=== PATIENT | female | born 1985 | race Caucasian/White ===

== ENCOUNTER 2023-03-05 13:10 | Outpatient (OUT) | payer OTHER, SELFPAY ==
[2023-03-05 13:44] LABS: Alanine Aminotransferase 15 U/L (14-59); Albumin Globulin Ratio 1.2; Albumin Level 4.1 g/dL (3.4-5.0); Alkaline Phosphatase 78 U/L (46-116); Anion Gap 15.8; Aspartate Amino Transferase 12 U/L (15-37); BUN Creatinine Ratio 25.4; Bilirubin Total 0.2 mg/dL (0.2-1.0); Calcium 8.7 mg/dL (8.5-10.1); Carbon Dioxide 20.8 mmol/L (21.0-32.0); Chloride 110 mmol/L (98-107); Estimated GFR (African America >60 (>=60); Estimated GFR (Non-African Ame >60 (>=60); Globulin 3.4 g/dL; Glucose 80 mg/dL (74-106); Potassium 3.6 mmol/L (3.5-5.1); Sodium 143 mmol/L (136-145); Total Protein 7.5 g/dL (6.4-8.2); Uric Acid 3.7 mg/dL (2.6-6.0)
[2023-03-05 14:11] LABS: Basophils Absolute Auto 0.1 10^3/uL (0.0-0.1); Basophils Percent Auto 0.9 % (0.2-2.0); Eosinophils Absolute Auto 0.3 10^3/uL (0.0-0.7); Eosinophils Percent Auto 3.5 % (0.9-7.0); Hemoglobin 10.7 g/dL (12.0-16.0); Immature Granulocytes Abs Auto 0.02 10^3/uL (0.00-0.03); Immature Granulocytes Pct Auto 0.2 % (0.0-0.5); Mean Corpuscular HGB Conc 30.6 g/dL (29.9-35.2); Mean Corpuscular Hemoglobin 29.2 pg (26.7-34.0); Mean Corpuscular Volume 95.6 fL (81.0-99.0); Mean Platelet Volume 9.4 fL (9.5-13.5); Monocytes Absolute Auto 0.5 10^3/uL (0.3-0.8); Monocytes Percent Auto 6.3 % (1.7-12.0); Neutrophils Absolute Auto 5.2 10^3/uL (1.4-6.5); Neutrophils Percent Auto 64.1 % (43.0-75.0); Platelet Count 423 10^3/uL (150-450); Red Blood Count 3.66 10^6/uL (4.20-5.40); Red Cell Distribution Width 16.3 % (11.0-15.0); White Blood Count 8.1 10^3/uL (4.0-11.0)
[2023-03-05 14:22] LABS: Erythrocyte Sedimentation Rate 17 mm/hr (<=20)
[2023-03-06 04:09] LABS: Rheumatoid Factor (RF) 15.4 IU/mL (<14.0)
[2023-03-08 14:08] LABS: ANA Direct Negative (Negative)
[2023-03-11 08:44] LABS: C Reactive Protein <0.50 mg/dL (<=0.50)
== END 2023-03-05 13:11 | disposition home or self-care (01) ==
LOC: LAB 13:11
PROVIDERS: PCP Family Medicine; Visit Provider Family Medicine
DX: M25.40 Effusion, unspecified joint (principal)
CPT/HCPCS: 36415; 80053; 84550; 85025; 85652; 86038; 86140; 86430; 86431

== ENCOUNTER 2023-09-13 13:42 | Emergency (ER) | payer OTHER, SELFPAY ==
[2023-09-13] VITALS (27 sets, daily range): BP systolic 113–154; BP diastolic 58–90; PULSE 58–100; TEMP 36.6; O2SAT 100; BMI 22.8
--- NOTE | 2023-09-13 14:24 | ECG_ITS ---
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
--- NOTE | 2023-09-13 14:27 | PC.NURSE ---
bruising noted across lower abd, bruise to left thigh and bruise to left breast
--- NOTE | 2023-09-13 14:31 | CT_ITS ---
The [address] [address] Patient Name: VLADIMIR PINA MRN: [id number] date: 1985 Sex: F Assigned Patient Location: ER Current Patient Location: ED.MAIN Accession/Order Number: [id number] Exam Date: 09/13/2023 14:59 Report Date: 09/13/2023 15:31 At the request of: POLI FLOOD Procedure: CT head/brain wo con CT head/brain wo con, CT cervical spine wo con, 09/13/2023 2:59 PM EDT INDICATION: trauam COMPARISON: There is no appropriate prior study for comparison. TECHNIQUE: Axial images of 3 mm are obtained from the base of the skull to vertex completed with Axial images of 2 mm are obtained from base of skull to T2 without contrast. Dose reduction techniques were achieved by using automated exposure control and/or adjustment of mA and/or kV according to patient size and/or use of iterative reconstruction technique. FINDINGS: The cerebral and cerebellar sulci as well as ventricular system are appropriate for age. There is no intracranial mass, mass effect, midline shift, intra or extra-axial fluid collection. No acute territorial infarction or hemorrhage is noted. Possible enlarged perivascular space in the right external capsule. The visualized portions of orbits, mastoid air cells as well as paranasal sinuses are unremarkable. There is no suspicious osteolytic or osteoblastic lesion. No acute fracture or dislocation is noted. Multilevel degenerative changes of cervical spine are noted. CT/CT head/brain wo con IMPRESSION: No acute intracranial process is identified. No acute fracture. Electronically authenticated by: SEYMOUR CABA Date: 09/13/2023 15:31
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
--- NOTE | 2023-09-13 14:35 | CT_ITS ---
The [address] [address] Patient Name: VLADIMIR PINA MRN: [id number] date: 1985 Sex: F Assigned Patient Location: ER Current Patient Location: ED.MAIN Accession/Order Number: [id number] Exam Date: 09/13/2023 14:59 Report Date: 09/13/2023 15:31 At the request of: POLI FLOOD Procedure: CT cervical spine wo con CT head/brain wo con, CT cervical spine wo con, 09/13/2023 2:59 PM EDT INDICATION: trauam COMPARISON: There is no appropriate prior study for comparison. TECHNIQUE: Axial images of 3 mm are obtained from the base of the skull to vertex completed with Axial images of 2 mm are obtained from base of skull to T2 without contrast. Dose reduction techniques were achieved by using automated exposure control and/or adjustment of mA and/or kV according to patient size and/or use of iterative reconstruction technique. FINDINGS: The cerebral and cerebellar sulci as well as ventricular system are appropriate for age. There is no intracranial mass, mass effect, midline shift, intra or extra-axial fluid collection. No acute territorial infarction or hemorrhage is noted. Possible enlarged perivascular space in the right external capsule. The visualized portions of orbits, mastoid air cells as well as paranasal sinuses are unremarkable. There is no suspicious osteolytic or osteoblastic lesion. No acute fracture or dislocation is noted. Multilevel degenerative changes of cervical spine are noted. CT/CT cervical spine wo con IMPRESSION: No acute intracranial process is identified. No acute fracture. Electronically authenticated by: SEYMOUR CABA Date: 09/13/2023 15:31
[2023-09-13] MEDS: MORPHINE SULFATE 4 MG/ML VIAL IV (14:53)
[2023-09-13] MEDS: ONDANSETRON PF 4 MG/2 ML VIAL IV (14:53)
[2023-09-13] MEDS: 0.9 % SODIUM CHLORIDE 1,000 ML 1000 ML IV (14:54)
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
[2023-09-13] MEDS: DIAZEPAM 10 MG/2 ML SYRINGE 2 MG IV (15:24)
[2023-09-13] MEDS: PROCHLORPERAZINE 10 MG/2 ML VIAL 5 MG IV (15:24)
[2023-09-13] MEDS: KETOROLAC TROMETHAMINE 30 MG/ML VIAL 15 MG IVP (15:42)
[2023-09-13 15:51] LABS: Basophils Percent Auto 0.1 % (0.2-2.0); Hematocrit 39.3 % (36.0-48.0); Hemoglobin 12.1 g/dL (12.0-16.0); Immature Granulocytes Abs Auto 0.06 10^3/uL (0.00-0.03); Immature Granulocytes Pct Auto 0.4 % (0.0-0.5); Lymphocytes Absolute Auto 0.8 10^3/uL (1.2-3.8); Lymphocytes Percent Auto 5.9 % (20.5-60.0); Mean Corpuscular HGB Conc 30.8 g/dL (29.9-35.2); Mean Corpuscular Volume 94.2 fL (81.0-99.0); Mean Platelet Volume 9.9 fL (9.5-13.5); Monocytes Absolute Auto 0.3 10^3/uL (0.3-0.8); Neutrophils Absolute Auto 12.8 10^3/uL (1.4-6.5); Neutrophils Percent Auto 91.6 % (43.0-75.0); Platelet Count 149 10^3/uL (150-450); Red Blood Count 4.17 10^6/uL (4.20-5.40); Red Cell Distribution Width 14.6 % (11.0-15.0)
[2023-09-13] MEDS: 0.9 % SODIUM CHLORIDE 1,000 ML 999 ML IV (16:00)
[2023-09-13 16:03] LABS: Prothrombin Time 10.6 sec (9.0-11.6)
[2023-09-13 16:15] LABS: Bilirubin Urine NEGATIVE (NEGATIVE); Blood Urine SMALL (NEGATIVE); Clarity Urine CLEAR (CLEAR); Color Urine LT. YELLOW (YELLOW); Glucose Urine UA NEGATIVE (NEGATIVE); Ketones Urine 40 mg/dL (NEGATIVE); Leukocyte Esterase Urine NEGATIVE (NEGATIVE); Nitrite Urine NEGATIVE (NEGATIVE); Protein Urine NEGATIVE (NEG/TRACE); Urine Microscopic Indicated YES; Urobilinogen Urine 0.2 EU/dL (0.2-1.0); pH Urine 6.5 (5.0-9.0)
[2023-09-13 16:23] LABS: Bacteria Urine TRACE #/HPF (NONE SEEN); Cast Seen? NONE SEEN #/LPF (NONE SEEN); Crystals Seen? None Seen #/HPF (None Seen); Mucus Urine NONE SEEN (NONE SEEN); Squamous Epithelial Cell Urine FEW #/LPF (NONE/RARE); Urine Culture Indicated NO; WBC Urine 0-2 #/HPF (NONE SEEN)
[2023-09-13 16:24] LABS: Alanine Aminotransferase 12 U/L (14-59); Albumin Globulin Ratio 1.2; Albumin Level 4.1 g/dL (3.4-5.0); Alkaline Phosphatase 94 U/L (46-116); Anion Gap 20.9; Aspartate Amino Transferase 12 U/L (15-37); BUN Creatinine Ratio 19.1; Bilirubin Total 0.3 mg/dL (0.2-1.0); Calcium 8.8 mg/dL (8.5-10.1); Carbon Dioxide 12.8 mmol/L (21.0-32.0); Chloride 108 mmol/L (98-107); Estimated GFR (African America >60 (>=60); Estimated GFR (Non-African Ame >60 (>=60); Globulin 3.4 g/dL; Glucose 101 mg/dL (74-106); Potassium 3.7 mmol/L (3.5-5.1); Sodium 138 mmol/L (136-145); Total Protein 7.5 g/dL (6.4-8.2); Troponin I High Sensitivity <4.0 pg/mL (4.0-51.3)
[2023-09-13 16:28] LABS: Amphetamine Screen Urine NEGATIVE (NEGATIVE); Barbiturates Screen Urine POSITIVE (NEGATIVE); Benzodiazepines Screen Urine NEGATIVE (NEGATIVE); Buprenorphine Screen Urine NEGATIVE (NEGATIVE); Cannabinoid Screen Urine NEGATIVE (NEGATIVE); Cocaine Screen Urine NEGATIVE (NEGATIVE); Methadone Screen Urine NEGATIVE (NEGATIVE); Methamphetamines Screen Urine NEGATIVE (NEGATIVE); Opiate Screen Urine POSITIVE (NEGATIVE); Oxycodone Screen Urine NEGATIVE (NEGATIVE); Phencyclidine Screen Urine NEGATIVE (NEGATIVE); Tricyclic Antidepressant Urine NEGATIVE (NEGATIVE)
[2023-09-13 16:36] LABS: HCG Qualitative NEGATIVE (NEGATIVE)
[2023-09-13 17:12] LABS: Lactate/Lactic Acid 2.6 mmol/L (0.4-2.0)
== END 2023-09-13 18:40 | disposition home or self-care (01) ==
PROVIDERS: Emergency Provider Emergency Medicine; PCP Family Medicine
DX: N13.2 Hydronephrosis with renal and ureteral calculous obstruction (principal); S70.12XA Contusion of left thigh, initial encounter; S20.02XA Contusion of left breast, initial encounter; S30.1XXA Contusion of abdominal wall, initial encounter; V40.9XXA Unspecified car occupant injured in collision with pedestrian or animal in traffic accident, initial encounter; N83.201 Unspecified ovarian cyst, right side; R11.2 Nausea with vomiting, unspecified
CPT/HCPCS: 36415; 70450; 71260; 72125; 74177; 80053; 80307; 81001; 83605; 83690; 84484; 84703; 85025; 85610; 85730; 86850; 86900; 86901; 93005; 96361; 96374; 96375; 99285; J0780; J1885; J2270; J2405; J3360; Q9967

== ENCOUNTER 2024-08-28 05:49 | Emergency (ER) | payer OTHER, SELFPAY ==
--- OUTSIDE RECORDS SUMMARY | 2024-08-25 15:34 | XMS_ITS ---
Author Organization [facility] Care Team Providers Care Nozzle And Sleeve Worker Name Role Phone MARCELO CASTILLO Primary Care Unavailable DALE GONZALEZ Attending Unavailable MARCELO CASTILLO Primary Care Unavailable Purpose PROBLEMS DATE TYPE CONDITION / CODE ATTENDING STATUS [facility] 08/25/2024 Unknown Unspecified hemorrhoids / K64.9(ICD-10) NA [facility] 08/25/2024 Unknown Rectal Pain / FREETEXT(AOF) NA [facility] 05/04/2024 Unknown Acute embolism a nd thrombosis of unspecified deep veins of left proximal lower extremity / I82.4Y2(ICD-10) [facility] 05/04/2024 Unknown Leg Pain / FREETEXT(AOF) LISADALE GARCIA [facility] 05/04/2024 Unknown Leg pain, no inj ury / UNK(Unknown) [facility] PROCEDURES No Procedure Records Found VITAL SIGNS No Vital Signs Records Found RESULTS XR FOOT LT 2 VWS Observed: 05/04/2024 2:36 PM Status: COMPLETED Source: [facility] XR FOOT LT 2 VWS 2 views left foot HISTORY: Pain and swelling COMPARISON: None IMPRESSION: * No acute fracture or malalignment in the left foot. * Tiny calcaneal spurs. Finalized by Tobi Espino MD on 05/04/2024 2:40 PM CBC AND AUTO DIFF Collected: 05/04/2024 1:37 PM Status: COMPLETED Source: [facility] TYPE CODE TESTS RESULT OUT OF RANGE REFERENCE UNITS LAB WBC(LOINC) WBC COUNT 7.5 4.0-11.0 X10E9/L LAB RBC(LOINC) RBC COUNT 3.76 Low 3.80-5.20 X10E12/L LAB HGB(LOINC) HEMOGLOBIN 11.4 Low 11.7-15.5 g/dL LAB HCT(LOINC) HEMATOCRIT 35.1 35-47 % LAB MCV(LOINC) MCV 93 80-100 fL LAB MCH(LOINC) MCH 30.3 27-34 pg LAB MCHC(LOINC) MCHC 32.5 32-36 g/dL LAB RDW(LOINC) RDW 16.7 High 11.5-15.0 % LAB PLTC(LOINC) PLATELET COUNT 407 150-450 X10E9 /L LAB MPV(LOINC) MPV 7.0 7-12 fL LAB NEUT(LOINC) % NEUTROPHILS 71.8 % LAB LYMP(LOINC) % LYMPHOCYTES 19.1 % LAB MONO(LOINC) % MONOCYTES 6.4 % LAB EOS(LOINC) % EOSINOPHILS 2.1 % LAB BASO(LOINC) % BASOPHILS 0.6 % LAB ANEUT(LOINC) ABSOLUTE NEUTROPHIL 5.4 1.5-6.6 X10E9/L LAB ALYMP(LOINC) ABSOLUTE LYMPHOCYTE 1.4 1.0-3.5 X10E9/L LAB AMONO(LOINC) ABSOLUTE MONOCYTE 0.5 0-0.9 X10E9/L LAB AEOS(LOINC) ABSOLUTE EOSINOPHIL 0.2 0.0-0.4 X10E9/L LAB ABASO(LOINC) ABSOLUTE BASOPHIL 0.0 0.0-0.2 X10E9/L Performed By: #### CBCA, CMP #### [facility] ([id number]) [address] [place] [address], [place] [address] COMPREHENSIVE METABOLIC PANEL Collected: 2024 1:37 PM Status: COMPLETED Source: [facility] TYPE CODE TESTS RESULT OUT OF RANGE REFERENCE UNITS LAB NA(LOINC) SODIUM 139 134-146 mmol/L LAB K(LOINC) POTASSIUM 3.8 3.5-5.0 mmol/L LAB CL(LOINC) CHLORIDE 112 High 98-109 mmol/L LAB CO2(LOINC) CARBON DIOXIDE 19 Low 22-32 mmol/L LAB AGAP(LOINC) ANION GAP 8 5-15 mmol/L LAB BUN(LOINC) BLOOD UREA NITROGEN 16 5-23 mg/dL LAB CRET(LOINC) CREATININE 0.64 0.40-1.00 mg/dL Result Comment: METHOD TRACE ABLE TO IDMS STANDARD LAB GLU(LOINC) GLUCOSE 80 65-99 mg/dL LAB CA(LOINC) CALCIUM 8.9 8.5-10.5 mg/dL LAB TP(LOINC) TOTAL PROTEIN 7.6 6.0-8.0 g/dL LAB ALB(LOINC) ALBUMIN 4.2 3.2-5.3 g/dL LAB ALK(LOINC) ALKALINE PHOSPHATASE 85 39-130 U/L LAB AST(LOINC) AST 14 0-41 U/L LAB ALT1(LOINC) ALT 11 0-31 U/L LAB TBIL(LOINC) BILIRUBIN,TOTAL 0.4 0.3-1.2 mg/d L LAB EGFR(LOINC) eGFR (CKD-EPI) NON-RACE DEPENDENT >90 >59 ml/min/1 .73sq.m Result Comment: Reported eGFR is based on the CKD-EPI 2020 equation that does not use a race coefficient. Performed By: #### CBCA, CMP #### [facility] ([id number]) [address] [place] [address], [place] [address] ALLERGIES DATE TYPE / CODE NAME / CODE REACTION SEVERITY SOURCE 05/04/2024 DRUG INGREDI~Envir on~NON-CBORD/ [id number](SNO MED CT) BEE POLLEN [facility] 05/04/2024 DRUG INGREDI~NON-C BORD/[id number](SNOMED CT) DOXYCYCLINE HYCLATE Abdominal Pain [facility] 05/04/2024 DRUG~NON-CBOR D/[id number](S NOMED CT) SULFAMETHOXAZOLE-TRI METHOPRIM Rash Low [facility] ENCOUNTERS ADMIT/DISCHARGE ACCOUNT NUMBER ADMITTING ENCOUNTER CLASS LOCATION SOURCE 08/25/2024/ 5 [id number] Emergency Building:[facility]_ EDRoom: 13Bed: 13 [facility] 05/04/2024/01/30 [id number] Emergency Building:[facility]_ EDRoom: H2Bed: H2 [facility] FUNCTIONAL STATUS No Functional Status Records Found EQUIPMENT No Equipment Records Found PAYERS ENCOUNTER GUARANTOR PAYER SUBSCRIBER SOURCE 08/25/2024 VLADIMIR GAMBLEHenri: [place], [place] [address]Amj: () Primary Insurance:[facility] [place] Yurpy Number: [id number] Date:2024-08-25 VLADIMIR GAMBLEB: [id number] [place], [place] [address]Gzq: () [facility] 05/04/2024 VLADIMIR GAMBLEB: [place], [place] [address]Dlg: () Primary Insurance:[facility] [place] DinnrPolAptoy Number: [id number] Date:2022-07-04 VLADIMIR PINAB: [id number] [place], [place] [address]Arp: () [facility] SOCIAL HISTORY No Social History Records Found FAMILY HISTORY No Family History Records Found ADVANCE DIRECTIVES No Advanced Directives Records Found INFORMATION SOURCE DATE CREATED AUTHOR AUTHOR'S FADY BRONSON 08/28/2024 VARUN
[2024-08-28] VITALS (13 sets, daily range): BP systolic 115–134; BP diastolic 64–81; PULSE 66–68; TEMP 36.8; O2SAT 99–100; BMI 22.2
--- NOTE | 2024-08-28 06:00 | ED_ITS ---
HPI - Abdominal Pain General Chief Complaint: Abdominal Pain Stated Complaint: ABDOMINAL PAIN Time Seen by Provider: 08/28/24 05:50 Source: patient Mode of arrival: ambulance Limitations: no limitations History of Present Illness HPI narrative: 38-year-old female to the emergency department with chief complaint of abdominal pain. She reports that began around 9 PM is some left-sided flank pain and now radiates into her left lower abdomen. She has had similar pain in the past with kidney stones. She reports nausea associated with the pain. She denies . Related Data Previous Rx's ?Medication ?Instructions ?Recorded ketorolac 10 mg tablet 10 mg PO Q8H PRN pain 1 day #10 09/13/23 tabs ondansetron 4 mg disintegrating 4 mg PO Q4H PRN nausea and 09/13/23 tablet vomiting 3 days #6 tabs oxycodone-acetaminophen 5 mg-325 1 tab PO Q4H PRN pain #10 tabs 09/13/23 mg tablet (Percocet) tamsulosin 0.4 mg capsule (Flomax) 0.4 mg PO DAILY 7 d ays #7 caps 09/13/23 Allergies Allergy/AdvReac Type Severity Reaction Status Date / Time bee venom protein (honey bee) AdvReac Intermediate Redness of Verified 08/28/24 05:57 Skin doxycycline AdvReac Intermediate Abdominal Verified 08/28/24 05:57 Pain sulfamethoxazole (From AdvReac Intermediate Rash Verified 08/28/24 05:57 Bactrim) trimethoprim (From Bactrim) AdvReac Intermediate Rash Verified 08/28/24 05:57 Review of Systems ROS Status of ROS 10 or more systems reviewed and unremark able except as noted in history and below PFSH PFSH Social History Little interest or pleasure in doing things: not at all Feeling down, depressed, or hopeless: not at all Exam Narrative Exam Narrative: VITALS: I have reviewed the triage vital signs. GENERAL: Uncomfortable appearing adult female NEURO: Alert and oriented. Moves all extremities. Face is symmetric and expressive. EYES: PERRL. No scleral icterus or conjunctival injection. No discharge. HENT: Normocephalic, atraumatic. Hearing is grossly intact. Nares grossly patent and without discharge. Mucous membranes moist. NECK: No JVD. Patient moves neck without restriction. CARDIO: Rhythm regular. Normal rate. No murmur, rub, or gallop. Pulses equal bilaterally in the upper and lower extremity. No lower extremity edema. PULM: Lungs clear to auscultation in all [place]. No wheezes, rales, or rhonchi. No conversational dyspnea. No splinting, stridor, or accessory muscle use. GI/: Left-sided abdominal tenderness. No rebound or guarding. Normoactive bowel sounds. EXTREMITIES: Symmetric muscle bulk. No joint swelling. No clubbing, cyanosis, or deformity. SKIN: Warm and dry. Normal turgor. No rash or lesions appreciated. PSYCH: Mood, affect, and interaction is appropriate to the setting. Constitutional Vital Signs, click to edit/add: Last Vital Signs Temp 98.2 F 08/28/24 05:50 Pulse 66 08/28/24 06:28 Resp 19 08/28/24 06:28 BP 115/64 08/28/24 06:28 Pulse Ox 100 08/28/24 06:28 O2 Del Method Room Air 08/28/24 05:50 Course Vital Signs Vital signs: Vital Signs Temperature 98.2 F 08/28/24 05:50 Pulse Rate 68 08/28/24 05:50 Respiratory Rate 16 08/28/24 05:50 Blood Pressure 134/76 08/28/24 05:50 Pulse Oximetry 100 08/28/24 05:50 Oxygen Delivery Method Room Air 08/28/24 05:50 Temperature 98.2 F 08/28/24 05:50 Pulse Rate 66 08/28/24 06:28 Respiratory Rate 19 08/28/24 06:28 Blood Pressure 115/64 08/28/24 06:28 Pulse Oximetry 100 08/28/24 06:28 Oxygen Delivery Method Room Air 08/28/24 05:50 MDM - Abdominal Pain MDM Narrative Medical decision making narrative: 38-year-old female to the emergency department with chief complaint of left lower quadrant vital stable, the patient is afebrile. Onset in the left flank and migration into the left lower quadrant is concerning for kidney stone especially given history of previous stone with similar symptoms. She received Toradol and Zofran from squad with moderate relief of symptoms. Will add morphine. CT scan, labs, test and urinalysis are ordered. Patient agrees with this plan. Care signed out to Dr. Almendarez with the results of CT scan pending. Working diagnosis: Left flank pain Left-sided abdominal pain Medical Records Attestation: I reviewed the patient's medical records. Lab Data Labs: Lab Results 08/28/24 Range/Units 06:05 WBC 12.5 H (4.0-11.0) 10^3/uL RBC 3.64 L (4.20-5.40) 10^6/uL Hgb 10.9 L (12.0-16.0) g/dL Hct 34.2 L (36.0-48.0) % MCV 94.0 (81.0-99.0) fL MCH 29.9 (26.7-34.0) pg MCHC 31.9 (29.9-35.2) g/dL RDW 16.3 H (11.0-15.0) % Plt Count 354 (150-450) 10^3/uL MPV 9.2 L (9.5-13.5) fL Seg Neuts % (Manual) 96.0 H (43.0-75.0) Lymphocytes % (Manual) 3.0 L (20.5-60.0) % Monocytes % (Manual) 1.0 L (1.7-12.0) % Eosinophils % (Manual) 0.0 L (0.9-7.0) % Basophils % (Manual) 0.0 L (0.2-2.0) % Neutrophils # (Manual) 12.00 H (1.4-6.5) 10^3/uL Lymphocytes # (Manual) 0.37 L (1.20-3.80) 10^3/uL Monocytes # (Manual) 0.12 L (0.30-0.80) 10^3/uL Eosinophils # (Manual) 0.00 (0.00-0.70) 10^3/uL Basophils # (Manual) 0.00 (0.00-0.10) 10^3/uL Sodium 145 (136-145) mmol/L Potassium 3.7 (3.5-5.1) mmol/L Chloride 109 H (98-107) mmol/L Carbon Dioxide 18.3 L (21.0-32.0) mmol/L Anion Gap 21.4 BUN 18.0 (7.0-18.0) mg/dL Creatinine 0.82 (0.55-1.02) mg/dL Est GFR ( Amer) >60 (>=60 mL/min/1.73m^2) Est GFR (Non-Af Amer) >60 (>=60 mL/min/1.73m^2) BUN/Creatinine Ratio 22.0 Glucose 113 H (74-106) mg/dL Calcium 8.8 (8.5-10.1) mg/dL Serum HCG, Qual Negative (NEGATIVE) Discharge Plan Discharge Patient Disposition: Still a Patient
[2024-08-28] MEDS: MORPHINE SULFATE 4 MG/ML VIAL IV (06:23)
[2024-08-28] MEDS: 0.9 % SODIUM CHLORIDE 1,000 ML 999 ML IV (06:23)
[2024-08-28 06:25] LABS: Hematocrit 34.2 % (36.0-48.0); Hemoglobin 10.9 g/dL (12.0-16.0); Mean Corpuscular HGB Conc 31.9 g/dL (29.9-35.2); Mean Corpuscular Hemoglobin 29.9 pg (26.7-34.0); Mean Platelet Volume 9.2 fL (9.5-13.5); Platelet Count 354 10^3/uL (150-450); Red Blood Count 3.64 10^6/uL (4.20-5.40); Red Cell Distribution Width 16.3 % (11.0-15.0); White Blood Count 12.5 10^3/uL (4.0-11.0)
[2024-08-28 06:33] LABS: HCG Qualitative NEGATIVE (NEGATIVE); Internal Control Within Normal Limits
[2024-08-28 06:36] LABS: Anion Gap 21.4; Calcium 8.8 mg/dL (8.5-10.1); Carbon Dioxide 18.3 mmol/L (21.0-32.0); Chloride 109 mmol/L (98-107); Estimated GFR (African America >60 (>=60 mL/min/1.73m^2); Estimated GFR (Non-African Ame >60 (>=60 mL/min/1.73m^2); Glucose 113 mg/dL (74-106); Potassium 3.7 mmol/L (3.5-5.1); Sodium 145 mmol/L (136-145)
[2024-08-28] MEDS: ONDANSETRON PF 4 MG/2 ML VIAL IV ×2 (06:44→07:43)
[2024-08-28 06:45] LABS: Lymphocytes Absolute Manual 0.37 10^3/uL (1.20-3.80); Monocytes Absolute Manual 0.12 10^3/uL (0.30-0.80)
[2024-08-28 07:25] LABS: Bilirubin Urine SMALL (NEGATIVE); Blood Urine MODERATE (NEGATIVE); Clarity Urine CLEAR (CLEAR); Color Urine LT. YELLOW (YELLOW); Glucose Urine UA NEGATIVE (NEGATIVE); Ketones Urine >=80 mg/dL (NEGATIVE); Leukocyte Esterase Urine NEGATIVE (NEGATIVE); Nitrite Urine NEGATIVE (NEGATIVE); Protein Urine NEGATIVE (NEG/TRACE); Specific Gravity Urine 1.015 (1.005-1.025); Urobilinogen Urine 0.2 EU/dL (0.2-1.0)
[2024-08-28 07:36] LABS: Bacteria Urine TRACE #/HPF (NONE SEEN); Cast Seen? NONE SEEN #/LPF (NONE SEEN); Crystals Seen? None Seen #/HPF (None Seen); Mucus Urine MODERATE (NONE SEEN); RBC Urine 20-50 #/HPF (0-2); Squamous Epithelial Cell Urine FEW #/LPF (NONE/RARE)
[2024-08-28] MEDS: KETOROLAC TROMETHAMINE 30 MG/ML VIAL IVP (07:42)
--- NOTE | 2024-08-28 09:13 | ED.GENADUL1 ---
HPI HPI - General Adult General Chief complaint: Abdominal Pain Stated complaint: ABDOMINAL PAIN Time Seen by Provider: 08/28/24 05:50 Source: patient Mode of arrival: ambulance Limitations: no limitations History of Present Illness HPI narrative: 38-year-old female presented to the emergency department and was initially seen by Dr. Najera and signed out to me after discussing the case with him thoroughly. Please see his full history and physical exam. Related Data Previous Rx's ?Medication ?Instructions ?Recorded ketorolac 10 mg tablet 10 mg PO Q8H PRN pain 1 day #10 09/13/23 tabs ondansetron 4 mg disintegrating 4 mg PO Q4H PRN nausea and 09/13/23 tablet vomiting 3 days #6 tabs oxycodone-acetaminophen 5 mg-325 1 tab PO Q4H PRN pain #10 tabs 09/13/23 mg tablet (Percocet) tamsulosin 0.4 mg capsule (Flomax) 0.4 mg PO DAILY 7 days #7 caps 09/13/23 ondansetron 4 mg disintegrating 4 mg PO Q6H PRN nausea and 08/28/24 tablet vomiting #20 tabs oxycodone-acetaminophen 5 mg-325 1 tab PO Q6H PRN pain 5 days #20 08/28/24 mg tablet (Percocet) tabs tamsulosin 0.4 mg capsule (Flomax) 0.4 mg PO DAILY #7 caps 08/28/24 Allergies Allergy/AdvReac Type Severity Reaction Status Date / Time bee venom protein (honey bee) AdvReac Intermediate Redness of Verified 08/28/24 05:57 Skin doxycycline AdvReac Intermediate Abdominal Verified 08/28/24 05:57 Pain sulfamethoxazole (From AdvReac Intermediate Rash Verified 08/28/24 05:57 Bactrim) trimethoprim (From Bactrim) AdvReac Intermediate Rash Verified 08/28/24 05:57 Opioid HPI Opioid Management Most Recent Opioid Data: Last Pain Scale 6 Today, 07:54 Last ED Pain Assessment Today, 07:54 Last MAR Pain Assessment Today, 06:23 Ur Phencyclidine Scrn, (NEGATIVE) Negative 09/13/23, 15:50 PFSH PFSH Social History Little interest or pleasure in doing things: not at all Feeling down, depressed, or hopeless: not at all Exam Constitutional Vital Signs, click to edit/add: Last Vital Signs Temp 98.2 F 08/28/24 05:50 Pulse 66 08/28/24 06:28 Resp 19 08/28/24 06:28 BP 133/81 08/28/24 08:00 Pulse Ox 100 08/28/24 08:00 O2 Del Method Room Air 08/28/24 05:50 Course Vital Signs Vital signs: Vital Signs Temperature 98.2 F 08/28/24 05:50 Pulse Rate 68 08/28/24 05:50 Respiratory Rate 16 08/28/24 05:50 Blood Pressure 134/76 08/28/24 05:50 Pulse Oximetry 100 08/28/24 05:50 Oxygen Delivery Method Room Air 08/28/24 05:50 Temperature 98.2 F 08/28/24 05:50 Pulse Rate 66 08/28/24 06:28 Respiratory Rate 19 08/28/24 06:28 Blood Pressure 133/81 08/28/24 08:00 Pulse Oximetry 100 08/28/24 08:00 Oxygen Delivery Method Room Air 08/28/24 05:50 Medical Decision Making MDM Narrative Medical decision making narrative: Kidney stone is identified, 7 mm in the left proximal ureter. She is feeling improved and is able to be discharged home. She was prescribed Percocet, Flomax, and Zofran and was given referral to urology for appropriate follow-up. Treatment diagnosis and follow-up were discussed with the patient. Differential Diagnosis Differential Diagnosis: Kidney stone, UTI, flank pain, muscle strain Lab Data Lab results reviewed: Yes I reviewed the patient's lab results Labs: Lab Results 08/28/24 08/28/24 Range/Units 06:05 07:10 WBC 12.5 H (4.0-11.0) 10^3/uL RBC 3.64 L (4.20-5.40) 10^6/uL Hgb 10.9 L (12.0-16.0) g/dL Hct 34.2 L (36.0-48.0) % MCV 94.0 (81.0-99.0) fL MCH 29.9 (26.7-34.0) pg MCHC 31.9 (29.9-35.2) g/dL RDW 16.3 H (11.0-15.0) % Plt Count 354 (150-450) 10^3/uL MPV 9.2 L (9.5-13.5) fL Seg Neuts % (Manual) 96.0 H (43.0-75.0) Lymphocytes % (Manual) 3.0 L (20.5-60.0) % Monocytes % (Manual) 1.0 L (1.7-12.0) % Eosinophils % (Manual) 0.0 L (0.9-7.0) % Basophils % (Manual) 0.0 L (0.2-2.0) % Neutrophils # (Manual) 12.00 H (1.4-6.5) 10^3/uL Lymphocytes # (Manual) 0.37 L (1.20-3.80) 10^3/uL Monocytes # (Manual) 0.12 L (0.30-0.80) 10^3/uL Eosinophils # (Manual) 0.00 (0.00-0.70) 10^3/uL Basophils # (Manual) 0.00 (0.00-0.10) 10^3/uL Sodium 145 (136-145) mmol/L Potassium 3.7 (3.5-5.1) mmol/L Chloride 109 H (98-107) mmol/L Carbon Dioxide 18.3 L (21.0-32.0) mmol/L Anion Gap 21.4 BUN 18.0 (7.0-18.0) mg/dL Creatinine 0.82 (0.55-1.02) mg/dL Est GFR ( Amer) >60 (>=60 mL/min/1.73m^2) Est GFR (Non-Af Amer) >60 (>=60 mL/min/1.73m^2) BUN/Creatinine Ratio 22.0 Glucose 113 H (74-106) mg/dL Calcium 8.8 (8.5-10.1) mg/dL Serum HCG, Qual Negative (NEGATIVE) Urine Color Lt. yellow (YELLOW) Urine Clarity Clear (CLEAR) Urine pH 7.0 (5.0-9.0) Ur Specific [place] 1.015 (1.005-1.025) Urine Protein Negative (NEG/TRACE) mg/dL Urine Glucose (UA) Negative (NEGATIVE) mg/dL Urine Ketones >=80 A (NEGATIVE) mg/dL Urine Occult Blood Moderate A (NEGATIVE) Urine Nitrite Negative (NEGATIVE) Urine Bilirubin Small A (NEGATIVE) Urine Urobilinogen 0.2 (0.2-1.0) EU/dL Ur Leukocyte Esterase Negative (NEGATIVE) Urine RBC 20-50 A (0-2) #/HPF Urine WBC 2-5 A (NONE SEEN) #/HPF Ur Squamous Epith Cells Few A (NONE/RARE) #/LPF Urine Crystals None seen (None Seen) #/HPF Urine Bacteria Trace A (NONE SEEN) #/HPF Urine Casts None seen (NONE SEEN) #/LPF Urine Mucus Moderate A (NONE SEEN) Imaging Data CT scan - abdomen: Radiologist's impression: Obstructing 7 mm left proximal ureteral stone with moderate left hydronephrosis, nonobstructing bilateral nephrolithiasis measuring up to 5 mm Discharge Plan Discharge Chief Complaint: Abdominal Pain Clinical Impression: Kidney stone Patient Disposition: Home, Self-Care Time of Disposition Decision: 09:11 Condition: Good Mode of Transportation: Private Vehicle Prescriptions / Home Meds: New oxycodone-acetaminophen [Percocet] 5-325 mg tablet 1 tab PO Q6H PRN (Reason: pain) 5 Days Qty: 20 0RF tamsulosin [Flomax] 0.4 mg capsule 0.4 mg PO DAILY Qty: 7 0RF ondansetron 4 mg tablet,disintegrating 4 mg PO Q6H PRN (Reason: nausea and vomiting) Qty: 20 0RF No Action ketorolac 10 mg tablet 10 mg PO Q8H PRN (Reason: pain) 1 Days Qty: 10 0RF oxycodone-acetaminophen [Percocet] 5-325 mg tablet 1 tab PO Q4H PRN (Reason: pain) Qty: 10 0RF tamsulosin [Flomax] 0.4 mg capsule 0.4 mg PO DAILY 7 Days Qty: 7 0RF ondansetron 4 mg tablet,disintegrating 4 mg PO Q4H PRN (Reason: nausea and vomiting) 3 Days Qty: 6 0RF Print Language: Kazakh Instructions: Kidney Stones (ED), How to Strain Your Urine (ED) Referrals: MARCELO CASTILLO DO [Primary Care Provider, Family Practice] - 1 week Geremias Sims MD [Physician, Urology]
== END 2024-08-28 09:51 | disposition home or self-care (01) ==
PROVIDERS: Student in an Organized Health Care Education/Training Program; Emergency Provider Emergency Medicine; PCP Family Medicine
DX: N13.2 Hydronephrosis with renal and ureteral calculous obstruction (principal)
CPT/HCPCS: 36415; 74176; 80048; 81001; 84703; 85007; 85027; 96374; 96375; 96376; 99284; J1885; J2270; J2405

== ENCOUNTER 2024-09-06 10:30 | Day surgery (SDC) | payer OTHER, SELFPAY ==
--- OUTSIDE RECORDS SUMMARY | 2024-05-18 17:33 | XMS_ITS ---
Author Organization The [facility] in [place] Address [address] [place] [address] Care Team Providers Care Nurse Special Name Role Phone Alireza Garcia Primary Care Provider [phone] REASON FOR VISIT mail labs Encounters Encounter Location Date Provider Diagnosis [facility] [address] [place] [address] 05/18/2024 Alireza Garcia Plan Of Treatment Next Appt Details Provider Name:Alireza jeff, 11/15/2024 01:00:00 PM, [address] [place], [address], Progress Notes * [place] KELLEYB:[birth year] (38 yo F)Acc No.[id number]:05/18/2024 Patient: Ruma TAMEZ :1985 A ge:38 Y S ex:Female Address:[address] [place], [address] * true * Date: Generated for Fabi jeff/Meg/eTransmitting on: 0 09/06/2024 10:35 AM EDT
--- OUTSIDE RECORDS SUMMARY | 2024-08-21 10:17 | XMS_ITS ---
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 [address] [place] [address] 08/21/2024 Alireza Garcia Plan Of Treatment Medication Medication Name Sig Start Date Stop Date Notes Phentermine HCl 37.5 MG 1 tablet before breakfast Orally Once a day for 30 days 08/24/2024 Next Appt Details Provider Name:Alireza jeff, 11/15/2024 01:00:00 PM, [address] [place], [address], Progress Notes * [place] KELLEYB:[birth year] (38 yo F)Acc No.[id number]:08/21/2024 Patient: Ruma TAMEZ :1985 A ge:38 Y S ex:Female Address:[address] [place], [address] * Refills Start Phentermine HCl Tablet, 37.5 MG, Orally, 30 Tablet, 1 tablet before breakfast, Once a day, 30 days, Refills=0 * true * Date: Generated for Fabi jeff/Meg/Lizett on: 0 09/06/2024 10:35 AM EDT
--- OUTSIDE RECORDS SUMMARY | 2024-08-25 15:34 | XMS_ITS | Encounter Summary ---
Author Organization [facility] [employer] [facility] tem Address [id number] [address] [place] [address] Care Team Providers Care Floral Specialist Name Role Phone Alireza Garcia DO Primary Care Provider + [phone] Reason for Referral * Consultation (Routine) - Authorized Specialty Diagnoses / Procedures Referred By Contdeborah t Referred To Contact General Surgery Diagnoses Hemorrhoids, unspecified hemorrhoid type Lorie Bullock APRN-CNP [address] [place] [address] Phone: tel: fax: [facility] [address] [place] [address] Phone: tel: fax: Referral ID Status Reason Start Date Expiration Date Visits Requested Visits Authorized [id number] Authorized Specialty Services Required 08/25/2024 08/25/2025 1 1 Reason for Visit * Reason Comments Rectal Pain Patient c/o increase d pain due to hemorrhoid, states the rectal pain started Wednesday then has gotten worse. Patient took Excedrin and used prep H with no relief Encounter Details Date Type Department Care Team (Late st Contact Info) Description 08/25/2024 3:34 PM EDT - 08/25/2024 4:10 PM EDT Emergency [facility] - Emergency [address] [place] [id number] Hemorrhoids, unspecified hemorrhoid type (Primary Dx) Discharge Disposition: Home Social History Tobacco Use Types Packs/Day Years Used Date Smoking Tobacco: Every Day Cigarettes Smokeless Tobacco: Never Tobacco Cessation:Ready to Q uit: Not Asked; Counseling Given: Not Answered Hunger Screening Answer Date Recorded Within the past 12 months we worried whether our food would run out before we got money to buy more. Never True 08/25/2024 Within the past 12 months th e food we bought just didn't last and we didn't have money to get more. Never True 08/25/2024 Comments No Sex and Gender Information Value Date Recorded Sex Assigned at Not on file Legal Sex Female 11:24 AM EST Gender Identity Not on file Sexual Orientation Not on file documented as of this encounter Last Filed Vital Signs Vital Sign Reading Time Taken Comments Blood Pressure 130/76 08/25/2024 3:45 PM EDT Pulse 93 08/25/2024 3:41 PM EDT Temperature 36.9 C (98.4 F) 08/25/2024 3:41 PM EDT Respiratory Rate 20 08/25/2024 3:41 PM EDT Oxygen Saturation 100% 08/25/2024 3:45 PM EDT Inhaled Oxygen Concentration - - Weight 70.3 kg (155 lb) 08/25/2024 3:41 PM EDT Height 177.8 cm (5' 10 ) 08/25/2024 3:41 PM EDT Body Mass Index 22.24 08/25/2024 3:41 PM EDT documented in this encounter Discharge Instructions * Discharge Instructions* Lorie Bullock APRN-SENIOR MILITARY ANALYST - 08/25/2024 3:56 PM EDT Thank you for choosing us for your medical care. We know you have a choice, and we appreciate you choosing us for your medical concerns! You may receive a survey from the hospital about your visit. We very much appreciate your comments and concerns. Please read all medication insert instructions and side effects when dispensed by the pharmacy. Every medication has side effects, and you may experience any of them. Please call the emergency room with any questions or concerns you have. Please call your doctor for outpatient follow up and recommendations. The emergency room cannot replace ongoing care, and it is important for your personal physician to evaluate you and monitor your health. Return to the ER for increased pain, fever > 101.5, vomiting twice, or any concern you deem emergent. Lorie Bullock CNP * Attachments The following attachments cannot be sent through Care Everywhere. * Hemorrhoids ED ([place]ese) * How to take a sitz bath ([place]) documented in this encounter Medications at Time of Discharge levothyroxine (SYNTHROID, LEVOTHROID) 25 MCG tablet Take 1 tablet (25 mcg total) by mouth in the morning. tiZANidine (ZANAFLEX) 2 mg tablet Take 1 tablet (2 mg total) by mouth in the morning. topiramate (TOPAMAX) 200 MG tablet Take 1 tablet (200 mg total) by mouth in the morning and 1 tablet (200 mg total) before bedtime. aspirin-acetamin ophen-caffeine (EXCEDRIN MIGRAINE) 250-250-65 mg per tablet Take 1 tablet by mouth every 6 (six) hours as needed for headaches. buPROPion XL (WELLBUTRIN XL) 150 mg 24 hr tablet Take 1 tablet (150 mg total) by mouth in the morning. docusate sodium (COLACE) 100 mg capsule Take 1 capsule (100 mg total) by mouth every 12 (twelve) hours. 20 capsule 08/25/2024 hydrocortisone (ANUSOL-HC) 25 mg suppository Insert 1 suppository (25 mg total) into the rectum in the morning and 1 suppository (25 mg total) before bedtime. 12 suppository 08/25/2024 ibuprofen (MOTRIN) 800 mg tablet Take 1 tablet (800 mg total) by mouth every 6 (six) hours as needed for pain. 30 tablet 08/25/2024 documented as of this encounter ED Notes * SENAIT Pimentel - 08/25/2024 3:56 PM EDT Images from the original note were not included. [facility] - EMERGENCY Pt Name: Ruma Kelley Birthdate: 1985 Chief Complaint: Chief Complaint Patient presents with ??? Rectal Pain Patient c/o increased pain due to hemorrhoid, states the rectal pain started Wednesday then has gotten worse. Patient took Excedrin and used prep H with no relief History of Present Illness: Ruma Kelley is a 38-year-old female that presents to ED with complaint of hemorrhoid. The hemorrhoids started to bother her on Wednesday and has significantly gotten larger since then. States this has a hemorrhoid she was ever had to deal with. She states there is pain with sitting. Patient was ag reeable to treatment with Anusol rectal suppositories, Motrin as needed for pain, and a referral togeneral surgery. Past Medical History: Past Medical History: Diagnosis Date ??? Fatigue ??? Headache ??? Hypothyroidism ??? Irritable bowel syndrome Past Surgical History: History reviewed. No pertinent surgical history. Family History: History reviewed. No pertinent family history. Social History: Social History Socioeconomic History ??? Marital status: Tobacco Use ??? Smoking status: Every Day Current packs/day: 0.50 Types: Cigarettes ??? Smokeless tobacco: Never Social Drivers of Health Food Insecurity: No Food Insecurity (08/25/2024) Hunger Screening ??? Food Insecurity - Worry: Never True ??? Food Insecurity - Inability: Never True Review of Systems: Review of Systems Constitutional: Negative for chills and fever. HENT: Negative for ear pain. Eyes: Negative for pain. Respiratory: Negative for shortness of breath. Cardiovascular: Negative for chest pain/discomfort. Gastrointestinal: Negative for abdominal pain, diarrhea, nausea and vomiting. Hemorrhoid Genitourinary: Negative for flank pain. Musculoskeletal: Negative for back pain. Skin: Negative for rash. Neurological: Negative for headaches. Psychiatric/Behavioral: Negative for sleep disturbance and suicidal ideas. Physical Exam: ED Triage Vitals [08/25/24 1541] Temp Heart Rate Resp BP SpO2 36.9 ??C (98.4 ??F) 93 20 130/76 100 % Temp Source Heart Rate Source Patient Position BP Location FiO2 (%) Oral Pulse Ox Sitting Left arm -- Vitals: 08/25/24 1541 BP: 130/76 Temp: 36.9 ??C (98.4 ??F) TempSrc: Oral Pulse: 93 Resp: 20 SpO2: 100% Height: 177.8 cm (5' 10 ) Weight: 70.3 kg (155 lb) Physical Exam Vitals reviewed. HENT: Head: Normocephalic and atraumatic. Eyes: Conjunctiva/sclera: Conjunctivae normal. Cardiovascular: Rate and Rhythm: Normal rate. Genitourinary: Rectum: Tenderness, external hemorrhoid and internal hemorrhoid present. Musculoskeletal: General: Normal range of motion. Cervical back: Normal range of motion and neck supple. Skin: General: Skin is warm and dry. Neurological: General: No focal deficit present. Mental Status: She is alert and oriented to person, place, and time. GCS: GCS eye subscore is 4. GCS verbal subscore is 5. GCS motor subscore is 6. Procedure: Procedures Re-evaluation: Re-Evaluation Medical Decision Making Plan of care - discharge with Anusol rectal suppositories, Sitz bath instructions, Motrin as neededfor pain and referral to general surgery Risk OTC drugs. Prescription drug management. ED Course: Clinical Impressions as of 08/25/24 1556 Hemorrhoids, unspecified hemorrhoid type . ED Disposition ED Disposition Discharge Date/Time WedAugust 25, 2024 3:56 PM Comment At the time of discharge, the plan has been discussed with the patient regarding the diagnosis and prognosis. All questions have been answered. Verbal discharge instructions were discussed with the patient. The patient has been advised to follow up w ith their Primary Care Provider within 1 week. The patient was also instructed to return to the ED if their symptoms change, worsen, new symptoms arise or if they have any additional concerns. Medications Prescribed this Visit Sig ibuprofen (MOTRIN) 800 mg tablet Take 1 tablet (800 mg total) by mouth every 6 (six) hours as needed for pain. hydrocortisone (ANUSOL-HC) 25 mg suppository Insert 1 suppository (25 mg total) into the rectum in the morning and 1 suppository (25 mg total) before bedtime. LONNY Supervision Only Supervising Physician was Dr. Hanna Blake Please note that portions of this note were completed with a voice recognition program. Efforts were made to edit the dictations but occasionally words are mis-transcribed. SENAIT Pimentel 08/25/24 1558 documented in this encounter Plan of Treatment Upcoming Encounters Date Type Department Care Team (Late st Contact Info) Description 09/19/2024 1:00 PM EDT Office Visit [facility] [address] [place] [address] Lavinia Watkins APRN-SENIOR MILITARY ANALYST [address] [place] [address] Scheduled Referrals Name Type Priority Associated Diagnoses Order Schedule [facility] [place], [place] Outpatient Referral Routine Hemorrhoids, unspecified hemorrhoid type 1 Occurrences starting 08/25/2024 until 08/25/2025 documented as of this encounter Visit Diagnoses Diagnosis Hemorrhoids, unspecified hemorrhoid type- Primary documented in this encounter Care Teams Floral Specialist Relationship Specialty Start Date End Date Alireza Garcia DO [facility] [place] [address] PCP - General Family Medicine 05/04/24 documented as of this encounter
[2024-09-06] VITALS (11 sets, daily range): BP systolic 116–151; BP diastolic 60–93; PULSE 75–108; TEMP 36.2–36.6; O2SAT 96–100; BMI 21.5
--- OUTSIDE RECORDS SUMMARY | 2024-09-06 10:35 | XMS_ITS | Clinical Summary ---
Author Organization [facility] Address [address] [place] [address] Care Team Providers Care Community Organization Director Name Role Phone Unavailable Primary Care Provider Unavailabl e Social History Tobacco Use Types Packs/Day Years Used Date Smoking Tobacco: Never Assessed Comments Unknown Sex and Gender Information Value Date Recorded Sex Assigned at Not on file Legal Sex Female 8:15 PM EDT Gender Identity Not on file Sexual Orientation Not on file Last Filed Vital Signs Vital Sign Reading Time Taken Comments Blood Pressure - - Pulse - - Temperature - - Respiratory Rate - - Oxygen Saturation - - Inhaled Oxygen Concentration - - Weight 68 kg (150 lb) 06/14/2017 12:00 PM EDT Height 177.8 cm (5' 10 ) 06/14/2017 12:00 PM EDT Body Mass Index 21.52 06/14/2017 12:00 PM EDT Plan of Treatment Not on file
--- OUTSIDE RECORDS SUMMARY | 2024-09-06 10:35 | XMS_ITS | Encounter Summary ---
Author Organization [facility] tem Address [id number] [address] [place] [address] Care Team Providers Care Director Of Outpatient Services Name Role Phone Alireza Garcia DO Primary Care Provider + [phone] Encounter Details Date Type Department Care Team (Latest Contact Info) Description 08/25/2024 Travel Social History Tobacco Use Types Packs/Day Years Used Date Smoking Tobacco: Every Day Cigarettes Smokeless Tobacco: Never Hunger Screening Answer Date Recorded Within the [...] on file documented as of this encounter Plan of Treatment Upcoming Encounters Date Type Department Care Team (Late st Contact Info) Description 09/19/2024 1:00 PM EDT Office Visit [facility] [address] [place] [id number] Lavinia Watkins, DIRECTOR ORACLE DATABASE-FLIGHT INSPECTOR [address] [place] [address] documented as of this encounter Visit Diagnoses Not on filedocumented in this encounter Care Teams Director Of Outpatient Services Relationship Specialty Start Date End Date Alireza Garcia DO [address] [place] [address] PCP - General Family Medicine 05/04/24 documented as of this encounter
--- OUTSIDE RECORDS SUMMARY | 2024-09-06 10:35 | XMS_ITS | Clinical Summary ---
Author Organization [facility] tem Address [id number] [address] [place] [address] Care Team Providers Care Linux Admin Name Role Phone Alireza Garcia DO Primary Care Provider + [phone] Allergies Active Allergy Reactions Criticality Noted Date Comments Sulfamethoxazole-Trimethoprim Rash Low 2024 Bee Pollen 05/04/2024 Doxycycline Hyclate Abdominal Pain 05/04/2024 Medications levothyroxine (SYNTHROID, LEVOTHROID) 25 MCG tablet Take 1 tablet (25 mcg total) by mouth in the morning. Active buPROPion XL (WELLBUTRIN XL) 150 mg 24 hr tablet Take 1 tablet (150 mg total) by mouth in the morning. Active topiramate (TOPAMAX) 200 MG tablet Take 1 tablet (200 mg total) by mouth in the morning and 1 tablet (200 mg total) before bedtime. Active tiZANidine (ZANAFLEX) 2 mg tablet Take 1 tablet (2 mg total) by mouth in the morning. Active aspirin-acetami nophen-caffeine (EXCEDRIN MIGRAINE) 250-250-65 mg per tablet Take 1 tablet by mouth every 6 (six) hours as needed for headaches. Active ibuprofen (MOTRIN) 800 mg tablet Take 1 tablet (800 mg total) by mouth every 6 (six) hours as needed for pain. 30 tablet 08/26/19 25 Active hydrocortisone (ANUSOL-HC) 25 mg suppository Insert 1 suppository (25 mg total) into the rectum in the morning and 1 suppository (25 mg total) before bedtime. 12 suppository 08/26/19 25 Active docusate sodium (COLACE) 100 mg capsule Take 1 capsule (100 mg total) by mouth every 12 (twelve) hours. 20 capsule 08/26/19 25 Active Encounters Date Type Department Care Team Description 08/25/2024 3:34 PM EDT - 08/25/2024 4:10 PM EDT Emergency [facility] - Emergency [address] [place] [address] Hemorrhoids, unspecified hemorrhoid type (Primary Dx) Discharge Disposition: Home 08/25/2024 Travel from Last 3 Months Social History Tobacco Use Types Packs/Day Years [...] Mass Index 22.24 08/25/2024 3:41 PM EDT Plan of Treatment Upcoming Encounters Date Type Department Care Team (Late st Contact Info) Description 09/19/2024 1:00 PM EDT Office Visit [facility] [address] [place] [id number] Lavinia Watkins, JEWEL SAWYER-IMPROVEMENT ANALYST [address] [place] [address] Health Maintenance Due Date Last Done Comments Tobacco Counseling 1983 Depression Screening 1995 DTaP,Tdap and Td Vaccines (1 - Tdap) 10/21/2002 Pap Smear 10/21/2004 COVID-19 Vaccine (2023-2 5 season) 2023 05/12/2021, 05/01/2020, 04/03/2020 Influenza Vaccine 12/04/2024 Adult BMI Screening 08/25/2025 08/25/2024 Tobacco Screening 08/25/2025 08/25/2024 Medical Devices Not on file Insurance COMM[employer] Care Teams Linux Admin Relationship Specialty Start Date End Date Alireza Garcia DO [address] [place] [address] PCP - General Family Medicine 05/04/24
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
[2024-09-06 10:46] LABS: Basophils Absolute Auto 0.1 10^3/uL (0.0-0.1); Basophils Percent Auto 0.6 % (0.2-2.0); Eosinophils Absolute Auto 0.2 10^3/uL (0.0-0.7); Eosinophils Percent Auto 2.4 % (0.9-7.0); Hematocrit 35.5 % (36.0-48.0); Hemoglobin 11.3 g/dL (12.0-16.0); Immature Granulocytes Abs Auto 0.01 10^3/uL (0.00-0.03); Immature Granulocytes Pct Auto 0.1 % (0.0-0.5); Lymphocytes Absolute Auto 2.1 10^3/uL (1.2-3.8); Lymphocytes Percent Auto 23.6 % (20.5-60.0); Mean Corpuscular HGB Conc 31.8 g/dL (29.9-35.2); Mean Corpuscular Hemoglobin 29.7 pg (26.7-34.0); Mean Corpuscular Volume 93.2 fL (81.0-99.0); Mean Platelet Volume 9.9 fL (9.5-13.5); Monocytes Absolute Auto 0.8 10^3/uL (0.3-0.8); Monocytes Percent Auto 8.4 % (1.7-12.0); Neutrophils Absolute Auto 5.8 10^3/uL (1.4-6.5); Neutrophils Percent Auto 64.9 % (43.0-75.0); Platelet Count 224 10^3/uL (150-450); Red Blood Count 3.81 10^6/uL (4.20-5.40); Red Cell Distribution Width 16.2 % (11.0-15.0); White Blood Count 8.9 10^3/uL (4.0-11.0)
--- OUTSIDE RECORDS SUMMARY | 2024-09-06 10:52 | XMS_ITS | CCD ---
Author Organization [facility] Care Team Providers Care National Sales Consultant Name Role Phone MARCELO CASTILLO Admitting Unavailable CASTILLO, MARCELO Mcdonald Attending Unavailable CASTILLO, MARCELO Mcdonald Consulting Unavailable CASTILLO, MARCELO A Admitting Unavailable CASTILLO, MARCELO A Attending Unavailable CASTILLO, MARCELO A Admitting Unavailable CASTILLO, MARCELO A Attending Unavailable CASTILLO, MARCELO A Primary Care Unavailable CASTILLO, MARCELO A Consulting Unavailable PACO LOPEZ Consulting Unavailable Shasta Archibald Unavailable MARCELO CASTILLO Primary Care Unavailable DALE GONZALEZ Attending Unavailable CASTILLO, MARCELO Tamara Primary Care Unavailable Summer Huertas Attending Unavailable Allergies Allergy Classification Reported Allergen(s) Allergy Type Date of Onset Reaction(s) Facility (2 sources) Doxycycline Drug Allergy 08-05-19 16 [facility] (2 sources) Sulfamethoxazole / Trimethoprim Drug Allergy 08-15-19 16 [facility] (1 source) Doxycycline Drug Allergy abdominal pian [facility] Other (1 source) Sulfamethoxazole / Trimethoprim Drug Allergy rash [facility] Other (1 source) Bee pollen; Translations: [BEE POLLEN] Propensity to adverse reactions to drug (disorder) 05-04-19 [facility] Repository (1 source) Doxycycline; Translations: [DOXYCYCLINE HYCLATE] Drug Allergy 05-04-19 [facility] Repository (2 sources) Sulfamethoxazole / Trimethoprim; Translations: [SULFAMETHOXAZOLE-T RIMETHOPRIM] Drug Allergy 05-04-19 [facility] Medications Current Medications Medication Drug Class(es) Dates Sig (Normalized) Sig (Original) acetaminophen 300 mg / butalbital 50 mg / caffeine 40 mg oral capsule (1 source) Barbiturate, Central Nervous System Stimulant, Methylxanthine Mztmawslqd-IHTE-Cozq e ine 50-300-40 MG TAKE 1 CAPSULE BY MOUTH EVERY 4 HOURS NEEDED FOR 30 DAYS Oral for 30 Days Active cephalexin 500 mg oral capsule (1 source) Cephalosporin Antibacterial Start: 03-17-20 take 1 capsule by mouth every eight hours Cephalexin 500 MG 1 capsule Orally tid for 10 day(s) Mar, Active levothyroxine sodium 0.025 mg oral tablet (1 source) l-Thyroxine Levothyroxine So dium 25 MCG Oral for 30 Days Active methylPREDNISolone 4 mg oral tablet (1 source) Corticosteroid methylPREDNISolo ne 4 MG Oral for 6 Days Active phentermine hydrochloride 37.5 mg oral tablet (1 source) Sympathomimetic Amine Anorectic take 1 tablet by mouth once daily before breakfast Phentermine HCl 37.5 MG TAKE 1 TABLET BY MOUTH ONCE DAILY BEFORE BREAKFAST Oral for 30 Days Active tiZANidine 4 mg oral tablet (1 source) Central alpha-2 Adrenergic Agonist take 1 tablet by mouth at bedtime tiZANidine HCl 4 MG TAKE 1 TABLET BY MOUTH AT BEDTIME Oral for 30 Days Active topiramate 100 mg oral tablet (1 source) Topiramate 100 M G Oral for 30 Days Active Problems Active Problems Problem Classification Problem Date Documented Da te Episodic/Chronic Anal and rectal conditions (1 source) Rectal pain Onset: 08-25-2024 Episodic Hemorrhoids (1 source) Unspecified hemorrhoids; Translations: [Unspecified hemorrhoids] Onset: 08-25-2024 Episodic Skin and subcutaneous tissue infections (1 source) Cellulitis of right finger Episodic Spondylosis; intervertebral disc disorders; other back problems (4 sources) Cervicalgia; Translations: [CERVICALGIA] Onset: 09-29-2018 Episodic Unclassified (1 source) Leg pain, no injury Onset: 05-04-2024 Past or Other Problems Problem Classification Problem Date Documented Da te Episodic/Chronic Malaise and fatigue (4 sources) Other fatigue; Translations: [OTHER FATIGUE] Onset: 05-16-2018 Episodic Other connective tissue disease (1 source) Pain in lower limb Onset: 05-04-2024 Episodic Other non-traumatic joint disorders (1 source) Pain in unspecified joint; Translations: [PAIN IN UNSPECIFIED JOINT] Onset: 05-19-2018 Episodic Phlebitis; thrombophlebitis and thromboembolism (1 source) Acute embolism and thrombosis of unspecified deep veins of left proximal lower extremity; Translations: [Acute embolism and thrombosis of unspecified deep veins of left proximal lower extremity] Onset: 05-04-2024 Episodic Results Test Name Value Interpretation Reference Range Facil ity CBC AND AUTO DIFFon 05-04-19 25 ABSOLUTE BASOPHIL 0.0 X10E9/L Normal 0.0-0.2 [facility] Comment on above: Performed By: #### C TAVON, CMP #### [facility] ([id number]) [address] [place] [address] 22439 ABSOLUTE NEUTROPHIL 5.4 X10E9/L Normal 1.5-6.[address] [facility] Comment on above: Performed By: #### C TAVON, CMP #### [facility] ([id number]) [address] [place] [address] 94781 Basophils/100 WBC (Bld) 0.6 % Normal [facility] Comment on above: Performed By: #### C TAVON, CMP #### [facility] ([id number]) [address] [place] [address] 31675 Eosinophils (Bld) [#/Vol] 0.2 10*3/uL Normal 0.0-0.4 [facility] Comment on above: Performed By: #### C TAVON, CMP #### [facility] ([id number]) [address] [place] [address] 63127 Eosinophils/100 WBC (Bld) 2.1 % Normal [facility] Comment on above: Performed By: #### C TAVON, CMP #### [facility] ([id number]) [address] [place] [address] 33192 Erythrocyte distribution width (RBC) [Ratio] 16.7 % High 11.5-15.0 [facility] Comment on above: Performed By: #### C TAVON, CMP #### [facility] ([id number]) [address] [place] [address] [place] [address] Hematocrit (Bld) [Volume fraction] 35.1 % Normal 35-47 [facility] Comment on above: Performed By: #### C BCA, CMP #### [facility] ([id number]) [address] [place] [address] 18940 Hemoglobin (Bld) [Mass/Vol] 11.4 g/dL Low 11.7-15.5 [facility] Comment on above: Performed By: #### C BCA, CMP #### [facility] ([id number]) [address] [place] [address] 62341 Lymphocytes (Bld) [#/Vol] 1.4 10*3/uL Normal 1.0-3.5 [facility] Comment on above: Performed By: #### C BCA, CMP #### [facility] ([id number]) [address] [place] [address] 32982 Lymphocytes/100 WBC (Bld) 19.1 % Normal [facility] Comment on above: Performed By: #### C BCA, CMP #### [facility] ([id number]) [address] [place] [address] 97027 MCH (RBC) [Entitic mass] 30.3 pg Normal 27-34 [facility] Comment on above: Performed By: #### C BCA, CMP #### [facility] ([id number]) [address] [place] [address] 43688 MCHC (RBC) [Mass/Vol] 32.5 g/dL Normal 32-36 [facility] Comment on above: Performed By: #### C BCA, CMP #### [facility] ([id number]) [address] [place] [address] 46140 MCV (RBC) [Entitic vol] 93 fL Normal 80-100 [facility] Comment on above: Performed By: #### C BCA, CMP #### [facility] ([id number]) [address] [place] [address] 05998 Monocytes (Bld) [#/Vol] 0.5 10*3/uL Normal 0-0.9 [facility] Comment on above: Performed By: #### C BCA, CMP #### [facility] ([id number]) [address] [place] [address] 27367 Monocytes/100 WBC (Bld) 6.4 % Normal [facility] Comment on above: Performed By: #### C BCA, CMP #### [facility] ([id number]) [address] [place] [address] 58986 Neutrophils/100 WBC (Bld) 71.8 % Normal [facility] Comment on above: Performed By: #### C BCA, CMP #### [facility] ([id number]) [address] [place] [address] 07709 Platelet mean volume (Bld) [Entitic vol] 7.0 fL Normal 7-12 [facility] Comment on above: Performed By: #### C TAVON, CMP #### [facility] ([id number]) [address] [place] [address] 16974 Platelets (Bld) [#/Vol] 407 10*3/uL Normal 150-450 [facility] Comment on above: Performed By: #### C BCA, CMP #### [facility] ([id number]) [address] [place] [address] 22465 RBC COUNT 3.76 X10E12/L Low 3.80-5.20 [facility] Comment on above: Performed By: #### C BCA, CMP #### [facility] ([id number]) [address] [place] [address] 77252 WBC (Bld) [#/Vol] 7.5 10*3/uL Normal 4.0-11.0 [facility] Comment on above: Performed By: #### C BCA, CMP #### [facility] ([id number]) [address] [place] [address] 56631 COMPREHENSIVE METABOLIC PANE Eligio 05-04-2024 Albumin [Mass/Vol] 4.2 g/dL Normal 3.2-5.3 [facility] Comment on above: Performed By: #### C BCA, CMP #### [facility] ([id number]) [address] [place] [address] 67687 ALP [Catalytic activity/Vol] 85 U/L Normal 39-130 [facility] Comment on above: Performed By: #### C BCA, CMP #### [facility] ([id number]) [address] [place] [address] 84994 ALT [Catalytic activity/Vol] 11 U/L Normal 0-31 [facility] Comment on above: Performed By: #### C BCA, CMP #### [facility] ([id number]) [address] [place] [address] 10762 Anion gap [Moles/Vol] 8 mmol/L Normal 5-15 [facility] Comment on above: Performed By: #### C BCA, CMP #### [facility] ([id number]) [address] [place] [address] 69128 AST [Catalytic activity/Vol] 14 U/L Normal 0-41 [facility] Comment on above: Performed By: #### C BCA, CMP #### [facility] ([id number]) [address] [place] [address] 95364 Bilirubin [Mass/Vol] 0.4 mg/dL Normal 0.3-1.2 [facility] Comment on above: Performed By: #### C BCA, CMP #### [facility] ([id number]) [address] [place] [address] 52149 Calcium [Mass/Vol] 8.9 mg/dL Normal 8.5-10.5 [facility] Comment on above: Performed By: #### C BCA, CMP #### [facility] ([id number]) [address] [place] [address] 93270 Chloride [Moles/Vol] 112 mmol/L High 98-109 [facility] Comment on above: Performed By: #### C BCA, CMP #### [facility] ([id number]) [address] [place] [address] 83997 CO2 [Moles/Vol] 19 mmol/L Low 22-32 [facility] Comment on above: Performed By: #### C BCA, CMP #### [facility] ([id number]) [address] [place] [address] 40055 Creatinine [Mass/Vol] 0.64 mg/dL Normal 0.40-1.00 [facility] Comment on above: Result Comment: METH OD TRACEABLE TO IDMS STANDARD Performed By: #### C BCA, CMP #### [facility] ([id number]) [address] [place] [address] 04269 eGFR (CKD-EPI) NON-RACE DEPENDENT >90 Normal >59 [facility] Comment on above: Result Comment: Reported eGFR is based on the CKD-EPI 1 equation that does not use a race coefficient. Performed By: #### C BCA, CMP #### [facility] ([id number]) [address] [place] [address] 32667 Glucose [Mass/Vol] 80 mg/dL Normal 65-99 [facility] Comment on above: Performed By: #### C BCA, CMP #### [facility] ([id number]) [address] [place] [address] 11565 Potassium [Moles/Vol] 3.8 mmol/L Normal 3.5-5.0 [facility] Comment on above: Performed By: #### C BCA, CMP #### [facility] ([id number]) [address] [place] [address] 56544 Protein [Mass/Vol] 7.6 g/dL Normal 6.0-8.0 [facility] Comment on above: Performed By: #### C BCA, CMP #### [facility] ([id number]) [address] [place] [address] 88222 Sodium [Moles/Vol] 139 mmol/L Normal 134-146 [facility] Comment on above: Performed By: #### C BCA, CMP #### [facility] ([id number]) [address] [place] [address] 24375 Urea nitrogen [Mass/Vol] 16 mg/dL Normal 5-23 [facility] Comment on above: Performed By: #### C BCA, CMP #### [facility] ([id number]) [address] [place] [address] 69949 XR FOOT LT 2 VWSon 5 XR FOOT LT 2 VWS XR FOOT LT 2 VWS 2 views left foot HISTORY: Pain and swelling COMPARISON: None IMPRESSION: * No acute fracture or malalignment in the left foot. * Tiny calcaneal spurs. Finalized by Tobi Espino MD on 05/04/2024 2:40 PM Normal [facility] AMYLASEon 05-28-2022 Amylase [Catalytic activity/Vol] 67 U/L Normal (30 - 110) [facility] Comment on above: Performed By: #### C BC/D, CHEM-C, TSHT34, B12+, ATIYA, LIP #### [facility] [address] [facility], [address] CBC WITH DIFFon 05-28-2022 ABS BASOPHIL 0.08 x10^3ul Normal (0.00 - 0.16) [facility] Comment on above: Order Comment: FACIL ITY: [facility] [id number] Performed By: #### C BC/D, CHEM-C, TSHT34, B12+, ATIYA, LIP #### [facility] [address] [facility], [address] ABS EOSINOPHIL 0.44 x10^3ul High (0.00 - 0.40) [facility] Comment on above: Order Comment: FACIL ITY: [facility] [id number] Performed By: #### C BC/D, CHEM-C, TSHT34, B12+, ATIYA, LIP #### [facility] [address] [facility], [address] ABS IMMATURE GRANS 0.02 x10^3ul Normal (0.00 - 0.11) [facility] Comment on above: Order Comment: FACIL ITY: [facility] [id number] Performed By: #### C BC/D, CHEM-C, TSHT34, B12+, ATIYA, LIP #### [facility] [address] [facility], [address] ABS LYMPHOCYTE 1.96 x10^3ul Normal (0.96 - 5.40) [facility] Comment on above: Order Comment: FACIL ITY: [facility] [id number] Performed By: #### C BC/D, CHEM-C, TSHT34, B12+, ATIYA, LIP #### [facility] [address] [facility], [address] ABS MONOCYTE 0.39 x10^3ul Normal (0.10 - 1.00) [facility] Comment on above: Order Comment: FACIL ITY: [facility] [id number] Performed By: #### C BC/D, CHEM-C, TSHT34, B12+, ATIYA, LIP #### [facility] [address] [facility], [address] ABS NEUTROPHIL 5.22 x10^3ul Normal (1.50 - 7.00) [facility] Comment on above: Order Comment: FACIL ITY: [facility] [id number] Performed By: #### C BC/D, CHEM-C, TSHT34, B12+, ATIYA, LIP #### [facility] [address] [place], [address] Basophils/100 WBC (Bld) 1.0 % Normal () [facility] Comment on above: Order Comment: FACIL ITY: [facility] [id number] Performed By: #### C BC/D, CHEM-C, TSHT34, B12+, ATIYA, LIP #### [facility] [address] [place], [address] Eosinophils/100 WBC (Bld) 5.4 % Normal () [facility] Comment on above: Order Comment: [facility]IL ITY: [facility] [id number] Performed By: #### C BC/D, CHEM-C, TSHT34, B12+, ATIYA, LIP #### [facility] [address] [place], [address] Hematocrit (Bld) [Volume fraction] 40.1 % Normal (37.0 - 47.0) [facility] Comment on above: Order Comment: [facility]ACIL ITY: [facility] [id number] Performed By: #### C BC/D, CHEM-C, TSHT34, B12+, ATIYA, LIP #### [facility] [address] [place], [address] Hemoglobin (Bld) [Mass/Vol] 12.2 g/dL Normal (12.0 - 16.0) [facility] Comment on above: Order Comment: FACIL ITY: [facility] [id number] Result Comment: HGB & HCT CHECKED BY REPEAT Performed By: #### C BC/D, CHEM-C, TSHT34, B12+, ATIYA, LIP #### [facility] [address] [place], [address] IMMATURE GRANS (IG) 0.2 % Normal () [facility] Comment on above: Order Comment: FACIL ITY: [facility] [id number] Performed By: #### C BC/D, CHEM-C, TSHT34, B12+, ATIYA, LIP #### [facility] [address] [place], [address] LYMPS 24.2 % Normal () [facility] Comment on above: Order Comment: FACIL ITY: [facility] [id number] Performed By: #### C BC/D, CHEM-C, TSHT34, B12+, ATIYA, LIP #### [facility] [address] [place], [address] MCH (RBC) [Entitic mass] 29.5 pg Normal (27.0 - 33.0) [facility] Comment on above: Order Comment: FACIL ITY: [facility] [id number] Performed By: #### C BC/D, CHEM-C, TSHT34, B12+, ATIYA, LIP #### [facility] [address] [place], [address] MCHC (RBC) [Mass/Vol] 30.4 g/dL Normal (30.0 - 37.0) [facility] Comment on above: Order Comment: [facility]ACIL ITY: [facility] [id number] Performed By: #### C BC/D, CHEM-C, TSHT34, B12+, ATIYA, LIP #### [facility] [address] [place], [address] MCV (RBC) [Entitic vol] 96.9 fL Normal (81.0 - 99.0) [facility] Comment on above: Order Comment: FACIL ITY: [facility] [id number] Performed By: #### C BC/D, CHEM-C, TSHT34, B12+, ATIYA, LIP #### [facility] [address] [place], [address] MONOS 4.8 % Normal () [facility] Comment on above: Order Comment: FACIL ITY: [facility] [id number] Performed By: #### C BC/D, CHEM-C, TSHT34, B12+, ATIYA, LIP #### [facility] [address] [place], [address] PLT 414 x10^3ul High (130 - 400) [facility] Comment on above: Order Comment: FACIL ITY: [facility] [id number] Performed By: #### C BC/D, CHEM-C, TSHT34, B12+, ATIYA, LIP #### [facility] [address] [place], [address] RBC 4.14 x10^6ul Low (4.20 - 5.40) [facility] Comment on above: Order Comment: FACIL ITY: [facility] [address] [place] [address] Performed By: #### C BC/D, CHEM-C, TSHT34, B12+, ATIYA, LIP #### [place] [place], [address] RDW-SD 50.1 fl High (37.0 - 49.0) [facility] Comment on above: Order Comment: FACIL ITY: [facility] [id number] Performed By: #### C BC/D, CHEM-C, TSHT34, B12+, ATIYA, LIP #### [facility] [address] [place], [address] SEGS 64.4 % Normal () [facility] Comment on above: Order Comment: FACIL ITY: [facility] [id number] Performed By: #### C BC/D, CHEM-C, TSHT34, B12+, ATIYA, LIP #### [facility] [address] [place], [address] WBC 8.11 x10^3ul Normal (3.80 - 10.60) [facility] Comment on above: Order Comment: FACIL ITY: [facility] [id number] Performed By: #### C BC/D, CHEM-C, TSHT34, B12+, ATIYA, LIP #### [facility] [address] [place], [address] COMP METABOLIC PANEL W/GFRon 05-28-2022 Albumin [Mass/Vol] 4.7 g/dL Normal (3.5 - 5.0) [facility] Comment on above: Performed By: #### C BC/D, CHEM-C, TSHT34, B12+, ATIYA, LIP #### [facility] [address] [place], [address] ALK PHOS 131 U/L High (38 - 126) [facility] Comment on above: Performed By: #### C BC/D, CHEM-C, TSHT34, B12+, ATIYA, LIP #### [facility] [address] [place], [address] ALT [Catalytic activity/Vol] 14 U/L Normal (1 - 35) [facility] Comment on above: Performed By: #### C BC/D, CHEM-C, TSHT34, B12+, ATIYA, LIP #### [facility] [address] [place], [address] AST [Catalytic activity/Vol] 21 U/L Normal (15 - 46) [facility] Comment on above: Performed By: #### C BC/D, CHEM-C, TSHT34, B12+, ATIYA, LIP #### [facility] [address] [place], [address] Bilirubin [Mass/Vol] 0.4 mg/dL Normal (0.2 - 1.3) [facility] Comment on above: Performed By: #### C BC/D, CHEM-C, TSHT34, B12+, ATIYA, LIP #### [facility] [address] [place], [address] Calcium [Mass/Vol] 10.0 mg/dL Normal (8.6 - 10.6) [facility] Comment on above: Performed By: #### C BC/D, CHEM-C, TSHT34, B12+, ATIYA, LIP #### [facility] [address] [place], [address] Chloride [Moles/Vol] 113 mmol/L High (98 - 107) [facility] Comment on above: Performed By: #### C BC/D, CHEM-C, TSHT34, B12+, ATIYA, LIP #### [facility] [address] [place], [address] CO2 [Moles/Vol] 20 mmol/L Low (22 - 30) [facility] Comment on above: Performed By: #### C BC/D, CHEM-C, TSHT34, B12+, ATIYA, LIP #### [facility] [address] [place], [address] Creatinine [Mass/Vol] 0.57 mg/dL Normal (0.52 - 1.04) [facility] Comment on above: Performed By: #### C BC/D, CHEM-C, TSHT34, B12+, ATIYA, LIP #### [facility] [address] [place], [address] GFR- AMER 143.6 ML/M1.7 High (60.0 - 140.1) [facility] Comment on above: Performed By: #### C BC/D, CHEM-C, TSHT34, B12+, ATIYA, LIP #### [facility] [address] [place], [address] GFR-NON AFRIC-AMER 118.7 ML/M1.7 High (60.0 - 115.8) [facility] Comment on above: Performed By: #### C BC/D, CHEM-C, TSHT34, B12+, ATIYA, LIP #### [facility] [address] [place], [address] Glucose [Mass/Vol] 93 mg/dL Normal (74 - 106) [facility] Comment on above: Performed By: #### C BC/D, CHEM-C, TSHT34, B12+, ATIYA, LIP #### [place] [facility] [address] [place], [address] Potassium [Moles/Vol] 4.5 mmol/L Normal (3.5 - 5.1) [facility] Comment on above: Performed By: #### C BC/D, CHEM-C, TSHT34, B12+, ATIYA, LIP #### [place] [facility] [address] [place], [address] Protein [Mass/Vol] 7.7 g/dL Normal (6.3 - 8.2) [facility] Comment on above: Performed By: #### C BC/D, CHEM-C, TSHT34, B12+, ATIYA, LIP #### [place] [facility] [address] [place], [address] Sodium [Moles/Vol] 150 mmol/L High (137 - 145) [facility] Comment on above: Performed By: #### C BC/D, CHEM-C, TSHT34, B12+, ATIYA, LIP #### [place] [facility] [address] [place], [address] Urea nitrogen [Mass/Vol] 13 mg/dL Normal (7 - 17) [facility] Comment on above: Performed By: #### C BC/D, CHEM-C, TSHT34, B12+, ATIYA, LIP #### [place] [address] [place], [address] LIPASEon 05-28-2022 Lipase [Catalytic activity/Vol] 76 U/L Normal (23 - 300) [facility] Comment on above: Performed By: #### C BC/D, CHEM-C, TSHT34, B12+, ATIYA, LIP #### [place] [facility] [address] [place], [address] T3 FREE, T4 FREE AND TSHon 0 2-23-2023 Free T3 [Mass/Vol] 3.95 pg/mL Normal (2.32 - 6.09) [facility] Comment on above: Performed By: #### C BC/D, CHEM-C, TSHT34, B12+, ATIYA, LIP #### [place] [facility] [address] [place], [address] Free T4 [Mass/Vol] 1.14 ng/dL Normal (0.78 - 2.35) [facility] Comment on above: Performed By: #### C BC/D, CHEM-C, TSHT34, B12+, ATIYA, LIP #### [facility] [address] [place], [address] TSH Qn 1.04 m[IU]/L Normal (0.470 - 4.680) [facility] Comment on above: Performed By: #### C BC/D, CHEM-C, TSHT34, B12+, ATIYA, LIP #### [facility] [address] [place], [address] VIT B12 AND FOLATEon 023 Cobalamin (Vitamin B12) [Mass/Vol] 227 pg/mL Low (239 - 931) [facility] Comment on above: Performed By: #### C BC/D, CHEM-C, TSHT34, B12+, ATIYA, LIP #### [facility] [address] [place], [address] FOLIC ACID 5.3 NG/ML Normal (2.8 - 20.0) [facility] Comment on above: Performed By: #### C BC/D, CHEM-C, TSHT34, B12+, ATIYA, LIP #### [facility] [address] [place], [address] XR C-SPINE MIN 4 VIEWSon XR C-SPINE MIN 4 VIEWS Patient: YOVANI, VLADIMIR J. Exam Date: 09/29/2018 : 1985 Gender:F Ordering : DR MARCELO CASTILLO D.O. Admission #: [id number] Family : Order #: [id number] CLICK HERE TO VIEW EXAM RADIOLOGY REPORT PROCEDURE: RADIOGRAPH C-SPINE MIN 4 VIEWS COMPARISON: None. INDICATIONS: Acute posterior cervical neck pain, pain with swallowing. no injury FINDINGS: BONES: Straightening of the normal lordotic curvature; positioning versus muscle spasm. No fracture, spondylolisthesis, or significant facet arthropathy. DISC SPACES: No significant disc height narrowing, subluxation, or endplate abnormality. PARASPINOUS: Negative. No paraspinous abnormality is seen. OTHER: Negative. CONCLUSION: 1. No acute abnormality or significant degenerative changes. 2. Straightening of the lordotic curvature suggestive of muscle spasm. Dictated by: Paco Lopez M.D. on 09/29/2018 at 16:40 Approved by: Paco Lopez M.D. on 09/29/2018 at 16:41 Normal [facility] PATO by IFAon 05-17-2018 Antinuclear Antibodies, IFA Negative Normal [facility] Comment on above: Result Comment: Nega tive <1:80 Borderline 1:80 Positive >1:80 Performed By: #### C BC #### [facility] [address] [address] Serafin Boggs MICHELLE-TADEO VIRUS (EBV) AB PROFILEon 05-17-2018 EBV Ab VCA, IgG 357.0 U/mL Critically high 0.0-17.9 [facility] Comment on above: Result Comment: Nega tive <18.0 Equivocal 18.0 - 21.9 Positive >21.9 Performed By: #### C BC #### [facility] [address] [address] Serafin Boggs EBV Ab VCA, IgM <36.0 Normal 0.0-35.9 [facility] Comment on above: Result Comment: Nega tive <36.0 Equivocal 36.0 - 43.9 Positive >43.9 Performed By: #### C BC #### [facility] [address] [address] Serafin Boggs EBV Early Antigen Ab, IgG <9.0 Normal 0.0-8.9 [facility] Comment on above: Result Comment: Nega tive < 9.0 Equivocal 9.0 - 10.9 Positive >10.9 Performed By: #### C BC #### [facility] [address], [place] [address] Serafinjayleen Boggs EBV Nuclear Antigen Ab, IgG <18.0 Normal 0.0-17.9 [facility] Comment on above: Result Comment: Nega tive <18.0 Equivocal 18.0 - 21.9 Positive >21.9 Performed By: #### C BC #### [facility] [address] [place] [address] Serafin Flakita Interpretation: Comment Normal [facility] Comment on above: Result Comment: EBV Interpretation Chart . Interpretation EBV-IgM EA(D)-IgG VCA-IgG EBNA-IgG . EBV Seronegative - - - - Early Phase + - - - Acute Primary + +or- + - Infection Convalescence/Past - +or- + + Infection Reactivated +or- + + + Infection + Antibody Present - Antibody Absent Performed By: #### C BC #### [facility] [address] [place], [place] [id number] Serafin Flakita RHEUMATOID FACTORon 05-17-19 19 RA Latex Turbid. <10.0 Normal 0.0-13.9 [facility] Comment on above: Performed By: #### R F #### [facility] [address] [place] [address] Serafin Flakita CBC AUTO DIFFon 05-16-2018 Basophils (Bld) [#/Vol] 0.0 103/ul Normal 0.0-0.1 [facility] Comment on above: Performed By: #### C BC #### [facility] [address] [place], [place] [id number] Serafin Flakita Basophils/100 WBC (Bld) 0.7 % Normal 0.2-2.0 [facility] Comment on above: Performed By: #### C BC #### [facility] [address] [place] [address] Serafin Flakita Eosinophils (Bld) [#/Vol] 0.2 103/ul Normal 0.0-0.7 [facility] Comment on above: Performed By: #### C BC #### [facility] [address] [id number] Serafin Flakita Eosinophils/100 WBC (Bld) 4.2 % Normal 0.9-7.0 [facility] Comment on above: Performed By: #### C BC #### [facility] [address] [place], [place] [id number] Serafin Flakita Erythrocyte distribution width (RBC) [Ratio] 13.8 % Normal 11.0-15.0 [facility] Comment on above: Performed By: #### C BC #### [facility] [address] [place], [place] [address] Serafin Flakita Hematocrit (Bld) [Volume fraction] 36.0 % Normal 36.0-48.0 [facility] Comment on above: Performed By: #### C BC #### [facility] [address] [place], [place] [address] Serafin Flakita Hemoglobin (Bld) [Mass/Vol] 11.2 g/dL Critically low 12.0-16.0 [facility] Comment on above: Performed By: #### C BC #### [facility] [address] [place], [place] [address] Serafin Flakita IG # 0.02 10e3/ul Normal 0.00-0.03 [facility] Comment on above: Performed By: #### C BC #### [facility] [address] [place], [place] [address] Serafin Flakita IG % 0.3 % Normal 0.0-0.5 [facility] Comment on above: Performed By: #### C BC #### [facility] [address] [place], [place] [address] Serafin Flakita Lymphocytes (Bld) [#/Vol] 1.8 103/ul Normal 1.2-3.8 [facility] Comment on above: Performed By: #### C BC #### [facility] [address] [place], [place] [address] Serafin Flakita Lymphocytes/100 WBC (Bld) 30.6 % Normal 20.5-60.0 [facility] Comment on above: Performed By: #### C BC #### [facility] [address], [place] [address] Serafin Flakita MANUAL DIFF REQ NO Normal [facility] Comment on above: Performed By: #### C BC #### [facility] [address], [place] [address] Serafin Flakita MCH (RBC) [Entitic mass] 31.6 pg Normal 26.7-34.0 [facility] Comment on above: Performed By: #### C BC #### [facility] [address], [place] [address] Serafin Flakita MCHC (RBC) [Mass/Vol] 31.1 g/dL Normal 29.9-35.2 [facility] Comment on above: Performed By: #### C BC #### [facility] [address] [place] [address] Serafin Flakita MCV (RBC) [Entitic vol] 101.7 fL Critically high 81.0-99.0 [facility] Comment on above: Performed By: #### C BC #### [facility] [address] [place] [address] Serafin Flakita Monocytes (Bld) [#/Vol] 0.4 103/ul Normal 0.3-0.8 [facility] Comment on above: Performed By: #### C BC #### [facility] [address] [place] [address] Serafin Flakita Monocytes/100 WBC (Bld) 6.4 % Normal 1.7-12.0 [facility] Comment on above: Performed By: #### C BC #### [facility] [address] [place] [address] Serafin Flakita Neutrophils (Bld) [#/Vol] 3.3 103/ul Normal 1.4-6.5 [facility] Comment on above: Performed By: #### C BC #### [facility] [address] [place] [address] Serafin Flakita Neutrophils/100 WBC (Bld) 57.8 % Normal 43.0-75.0 [facility] Comment on above: Performed By: #### C BC #### [facility] [address], [place] [address] Serafin Boggs Platelet mean volume (Bld) [Entitic vol] 9.8 fL Normal 9.5-13.5 [facility] Comment on above: Performed By: #### C BC #### [facility] [address] [place] [address] Serafin Boggs Platelets (Bld) [#/Vol] 341 103/ul Normal 150-450 [facility] Comment on above: Performed By: #### C BC #### [facility] [address] [place], [place] [address] Serafin Boggs RBC (Bld) [#/Vol] 3.54 106/ul Critically low 4.20-5.40 [facility] Comment on above: Performed By: #### C BC #### [facility] [address] [place], [place] [address] Serafin Boggs WBC (Bld) [#/Vol] 5.8 103/ul Normal 4.0-11.0 [facility] Comment on above: Performed By: #### C BC #### [facility] [address] [place], [place] [address] Serafin Boggs CRPon 05-16-2018 CRP [Mass/Vol] mg/L Normal <=1.0 [facility] Comment on above: Performed By: #### C RP #### [facility] [address] [place], [place] [address] Serafin Boggs FREE T3on 05-16-2018 Free T3 [Mass/Vol] 2.47 pg/mL Critically low 2.77-5.27 [facility] Comment on above: Performed By: #### C MP, URIC, TSH, FT3 #### [facility] [address] [place] [address] Serafinjayleen Boggs FREE T4on 05-16-2018 Free T4 [Mass/Vol] 0.90 ng/dL Normal 0.78-2.19 [facility] Comment on above: Performed By: #### B 12FOL, FT4 #### [facility] [address] [id number] Serafin Boggs PROF 14(COMP METB)on 019 Albumin [Mass/Vol] 4.5 g/dL Normal 3.5-5.0 [facility] Comment on above: Performed By: #### C MP, URIC, TSH, FT3 #### [facility] [address] [id number] Serafin Boggs Albumin/Globulin [Mass ratio] 1.7 {ratio} Normal [facility] Comment on above: Performed By: #### C MP, URIC, TSH, FT3 #### [facility] [address] [id number] Serafin Flakita ALP [Catalytic activity/Vol] 56 U/L Normal 38-126 [facility] Comment on above: Performed By: #### C MP, URIC, TSH, FT3 #### [facility] [address] [place] [address] Serafin Boggs ALT [Catalytic activity/Vol] 14 U/L Normal 9-52 [facility] Comment on above: Performed By: #### C MP, URIC, TSH, FT3 #### [facility] [address] [id number] Serafin Flakita Anion gap [Moles/Vol] 14.2 mmol/L Normal [facility] Comment on above: Performed By: #### C MP, URIC, TSH, FT3 #### [facility] [address] [place] [address] Serafin Boggs AST [Catalytic activity/Vol] 10 U/L Critically low 14-36 [facility] Comment on above: Performed By: #### C MP, URIC, TSH, FT3 #### [facility] [address] [id number] Serafin Boggs Bilirubin Ql (U) 0.2 mg/dL Normal 0.2-1.3 [facility] Comment on above: Performed By: #### C MP, URIC, TSH, FT3 #### [facility] [address] [id number] Serafin Flakita Calcium [Mass/Vol] 9.0 mg/dL Normal 8.4-10.2 [facility] Comment on above: Performed By: #### C MP, URIC, TSH, FT3 #### [facility] [address] [place] [address] Serafin Flakita Chloride [Moles/Vol] 109 mmol/L Critically high 98-107 [facility] Comment on above: Performed By: #### C MP, URIC, TSH, FT3 #### [facility] [address] [place] [address] Serafin Flakita CO2 [Moles/Vol] 22.4 mmol/L Normal 22.0-30.0 [facility] Comment on above: Performed By: #### C MP, URIC, TSH, FT3 #### [facility] [address] [place] [address] Serafin Flakita Creatinine [Mass/Vol] 0.62 mg/dL Normal 0.52-1.04 [facility] Comment on above: Performed By: #### C MP, URIC, TSH, FT3 #### [facility] [address] [place] [address] Serafin Flakita EGFR-AF MACANESE >60 Normal >=60 [facility] Comment on above: Performed By: #### C MP, URIC, TSH, FT3 #### [facility] [address] [place] [address] Serafin Flakita EGFR-NON AF MACANESE >60 Normal >=60 [facility] Comment on above: Performed By: #### C MP, URIC, TSH, FT3 #### [facility] [address] [place] [address] Serafin Flakita Globulin (S) [Mass/Vol] 2.6 g/dL Normal [facility] Comment on above: Performed By: #### C MP, URIC, TSH, FT3 #### [facility] [address] [place] [address] Serafin Flakita Glucose [Mass/Vol] 75 mg/dL Normal 74-106 [facility] Comment on above: Performed By: #### C MP, URIC, TSH, FT3 #### [facility] [address] [place], [place] [address] Serafin Flakita Potassium [Moles/Vol] 3.6 mmol/L Normal 3.4-5.0 [facility] Comment on above: Performed By: #### C MP, URIC, TSH, FT3 #### [facility] [address] [address] Serafin Flakita Protein [Mass/Vol] 7.1 g/dL Normal 6.1-8.2 [facility] Comment on above: Performed By: #### C MP, URIC, TSH, FT3 #### [facility] [address] [place] [address] Serafin Flakita Sodium [Moles/Vol] 142 mmol/L Normal 137-145 [facility] Comment on above: Performed By: #### C MP, URIC, TSH, FT3 #### [facility] [address] [place] [address] Serafin Flakita Urea nitrogen [Mass/Vol] 11.0 mg/dL Normal 7.0-17.0 [facility] Comment on above: Performed By: #### C MP, URIC, TSH, FT3 #### [facility] [address] [place] [address] Serafin Flakita Urea nitrogen/Creatinine [Mass ratio] 17.7 mg/mg Normal [facility] Comment on above: Performed By: #### C MP, URIC, TSH, FT3 #### [facility] [address] [place] [address] Serafin Flakita SED RATE WESTERGRENon 2018 SED RATE <1 Normal <=20 [facility] Comment on above: Performed By: #### S EDR #### [facility] [address] [place] [address] Serafin Flakita SEDRH METHOD AND NORMAL CHANGE 05/10/15. RESULTS ARE NOT AFFECTED BY HEMATOCRIT. Normal [facility] Comment on above: Performed By: #### S EDR #### [facility] [address] [place] [address] Serafin Flakita TSHon 05-16-2018 TSH Qn SEE BELOW Normal [facility] Comment on above: Result Comment: <0.3 4 UIU/ml HYPERTHYROID 0.34-5.60 UIU/ml EUTHYROID >5.60 UIU/ml HYPOTHYROID Performed By: #### C MP, URIC, TSH, FT3 #### [facility] [address] [place], [place] [address] Serafin Boggs TSH Qn 1.694 uIU/mL Normal 0.470-4.680 [facility] Comment on above: Performed By: #### C MP, URIC, TSH, FT3 #### [facility] [address] [place], [place] [address] Serafin Boggs URIC ACID SERUMon 05-16-2018 Urate [Mass/Vol] 3.6 mg/dL Normal 2.5-6.2 [facility] Comment on above: Performed By: #### C MP, URIC, TSH, FT3 #### [facility] [address] [place] [address] Serafin oBggs VIT B12 AND FOLATEon 019 Cobalamin (Vitamin B12) [Mass/Vol] 290.0 pg/mL Normal 239.0-931.0 [facility] Comment on above: Performed By: #### B 12FOL, FT4 #### [facility] [address] [place], [place] [address] Serafin Boggs FOLATE 7.10 ng/mL Normal >=2.76 [facility] Comment on above: Performed By: #### B 12FOL, FT4 #### [facility] [address] [place], [place] [address] Serafin Boggs Vital Signs Date Time Vital Sign Value Performing Clinician Facility 03-17-2023 17:15-0500 Body height 177.8 cm Shasta Archibald Other [facility] Other 03-17-2023 17:15-0500 Body mass index (BMI) [Ratio] 22.98 kg/m2 Shasta Archibald Other [facility] Other 03-17-2023 17:15-0500 Body temperature 98.1 [degF] Shasta Archibald Other [facility] Other 03-17-2023 17:15-0500 Body weight 72.67 kg Shasta Archibald Other [facility] Other 03-17-2023 17:15-0500 Diastolic blood pressure 79 mm[Hg] Shasta Bautistamond Other [facility] Other 03-17-2023 17:15-0500 Respiratory rate 18 /min Shasta Bautistamond Other [facility] Other 03-17-2023 17:15-0500 SaO2% (BldA) [Mass fraction] 99 % Shasta Archibald Other [facility] Other 03-17-2023 17:15-0500 Systolic blood pressure 134 mm[Hg] Shasta Bautistamond Other [facility] Other Encounters Encounter Date Encounter Type Care Provider Facility Start: 09-06-2024 ambulatory Summer Huertas Facility:[facility] Mu[facility]oz Start: 09-01-2024 ambulatory Summer Huertas Facility:[facility] Start: 08-25-2024 End: 08-25-2024 Emergency department patient visit [place] [facility] Start: 05-04-2024 End: 05-04-2024 Emergency department patient visit MARCELO Mcdonald [facility] Start: 03-17-2023 End: 03-17-2023 ambulatory Shasta Cristela Other [facility] Start: 03-17-2023 Office outpatient ne w 10 minutes Shasta Archibald [facility] R Start: 09-29-2018 End: 09-30-2018 Patient encounter procedure MARCELO CASTILLO Facility:[facility] Start: 06-17-2018 Patient encounter procedure MARCELO CASTILLO Facility:[facility] Start: 05-16-2018 End: 05-17-2018 Patient encounter procedure MARCELO CASTILLO Facility:[facility] Payers Date Payer Category Payer Unknown [id number] 2022 Unknown [id number] 2.1 [id number] 1983 Unknown [id number] 2.16.84 [id number] 1983 Unknown [id number] 2.16.84 [id number] 1983 Unknown [id number] 2.16.84 [id number] 1983 Unknown [id number] 2.16. [id number] 1983 Unknown [id number] 2.16. [id number] 1959 Self-pay [id number] 1961 Unknown [id number] 1959 Unknown [id number] Social History Date Type Detail Facility Unknown if ever smoked [facility] Other Sex Assigned At Sex Assigned At Bir th [facility] Other Evaluation note 03-17-2023 Note Date & Type Note Facility 03-17-2023 Evaluation note Encounter Date Diagnosis Assessment Notes Mar, Cellulitis of right finger (ICD-10 - L03.011) Drink plenty fluids, get plenty of rest. Continue home medications as prescribed. Take the cephalexin as prescribed until gone. Consider applying warm compresses to your fingers 2 or 3 times a day. Do not submerge your hand in water such as washing dishes until this is cleared. Call your family doctor tomorrow for an appointment for recheck sometime next week. See your doctor sooner if the symptoms worsen. Take Tylenol as needed for pain. [facility] Other History general Narrative - Reported Note Date & Type Note Facility History general Narrative - Reported Type Medical History RA (rheumatoid arthritis) Medical History Hypothyroid Medical History Migraine headache Surgical History wisdom teeth [facility] Other Summary Purpose Family History No Family History Records FoundNo Family History Records FoundNo Family History Records FoundNo Family History Records Found Advance Directives No Advanced Directives Records FoundNo Advanced Directives Records FoundNo Advanced Directives Records FoundNo Advanced Directives Records Found Additional Source Comments INFORMATION SOURCE (unrecogn ized section and content) DATE CREATED AUTHOR 10/08/2018 [facility] DATE CREATED AUTHOR AUTHOR'S ORGANIZ ATION 05/29/2022 [facility] DATE CREATED AUTHOR AUTHOR'S ORGANIZ ATION 09/01/2024 [facility] DATE CREATED AUTHOR AUTHOR'S ORGANIZ ATION 09/06/2024 [facility] REASON FOR VISIT (unrecogniz ed section and content) RIGHT RING FINGER SWOLLEN AN D RED FOR RECORDS PERTAINING TO PATIENTS WHO ARE OR HAVE BEEN ENROLLED IN A CHEMICAL DEPENDENCY/SUBSTANCEABUSE PROGRAM, SOME INFORMATION MAY BE OMITTED. This clinical summary was aggregated from multiple sources. Caution should be exercised in using it in the provision of clinical care. This summary normalizes information from multiple sources, and as a consequence, information in this document may materially change the coding, format and clinical context of patient data. In addition, data may be omitted in some cases. CLINICAL DECISIONS SHOULD BE BASED ON THE PRIMARY CLINICAL RECORDS. [employer] provides no warranty or guarantee of the accuracy or completeness of information in this document.
[2024-09-06 11:02] LABS: INR 1.14; Partial Thromboplastin Time 21.6 sec (22.3-36.2); Prothrombin Time 11.9 sec (9.0-11.6)
[2024-09-06] MEDS: LACTATED RINGER'S SOLUTION 1,000 ML 50 ML IV ×2 (11:11→13:22)
[2024-09-06 11:15] LABS: HCG Qualitative NEGATIVE (NEGATIVE); Internal Control Within Normal Limits
[2024-09-06] MEDS: METOCLOPRAMIDE HCL 10 MG/2 ML VIAL IVP (12:13)
[2024-09-06] MEDS: CEFAZOLIN SODIUM 2 GM/50 ML D5W PREMIX IV (12:40)
--- NOTE | 2024-09-06 12:47 | P.URON_ITS ---
Urology Surgery Operative Note Operative Note Procedure Date: 09/06/24 Time Out Performed: yes Pre-op Diagnosis: 1. Left ureteral stone with hydronephrosis 2. Left kidney stones 3. Renal colic Post-op Diagnosis: same as pre-op Procedures performed: Cystoscopy, left retrograde pyelogram, ureteroscopy laser lithotripsy/stone extraction of ureteral and kidney stones, stent placement Anesthesia: General-ET (Dr. Rossi) Primary Surgeon: Summer Huertas Complications: none Estimated blood loss (mL): 0 Findings: L RPG- proximal filling defect with mild hydro consistent with known stone. 7 mm left proximal ureteral stone underwent laser lithotripsy and removal 2 mid pole and 1 left lower pole stones laser lithotripsy and basket extracted No extravasation at end of case 1+ trabeculated bladder Specimens: left ureteral and kidney stones Drains: 6Fr x 26 cm JJ left ureteral stent on string Incision: none Indications for Procedures: 38 year old female recently diagnosed with 7 mm of left proximal ureteral stone with hydronephrosis and severe uncontrolled flank pain. 3 additional left kidney stones noted up to 5 mm. She was evaluated in clinic and elected to proceed with definitive stone surgery of left ureteroscopy, laser lithotripsy/stone extraction, stent placement. She desires treatment of kidney stones as well. Risks were discussed including but not limited to bleeding, pain, infection, damage to surrounding structures, inability to treat the stone/place stent and need for additional procedures. The patient understands the stent is not permanent and needs to be removed or exchanged within 3 months to prevent encrustation, infection, invasive procedures and/or permanent renal damage. Detailed description of Procedure: After informed consent was obtained, the patient was brought to the operating room and transferred onto the operating table in supine position. Sequential compression devices were placed on bilateral lower extremities. The patient received the appropriate dose of preoperative IV antibiotics and general anesthesia ETT was induced. They were positioned in modified dorsolithotomy with the appropriate pressure points padded, prepped, and draped in the usual sterile fashion for this procedure. An operative safety timeout was performed confirming the patient's identity, laterality and procedure, and all present agreed to proceed. I began by inserting a 22 Micronesian rigid cystoscope with 30 degree lens into the patient's urethra and bladder without difficulty. There were no bladder tumors, lesions, stones or foreign bodies. Bilateral ureteral orifices were orthotopic and patent. I turned my attention to the left ureteral orifice and a 5- Micronesian open-ended catheter was inserted into the ureteral orifice and dilute contrast was injected for retrograde pyelogram with findings as above. A hybrid wire was inserted into the ureter up to the renal pelvis confirmed on fluoroscopy. An 11/13 Micronesian by 36 cm ureteral access sheath was inserted over the wire in a sequential fashion to gain access to the stone. Next a flexible ureteroscope was inserted through the sheath and advanced to the ureter under fluoroscopic guidance until the stone was reached. A 275 ?m thulium laser fiber was used to break the stone into fragments which were then removed with a 1.8 tipless nitinol basket. After the stone was adequately treated, a full renoscopy was performed laser lithotripsy and removing the stones in the kidney. No significant residual stones or fragments remained. Contrast was injected to assist with mapping for the renoscopy. The wire was reinserted and a pull down ureteroscopy was performed confirming no stones remained in the ureter. Contrast was injected for retrograde pyelogram confirming no extravasation of contrast, filling defects or hydronephrosis. A 6 Fr x 26 cm JJ ureteral stent on a string was advanced over the wire, noting adequate curl in the renal pelvis and bladder on fluoroscopic and direct visualization. The bladder was drained and the cystoscope was removed. The stones were sent for pathology. String secured to left thigh with Tegaderm. The patient tolerated the procedure well without complication. The patient was awakened from anesthesia and sent to PACU in stable condition. Plan: Discharge home with stent pain medications. Remove stent by the string at home in 5 days. Follow up in 2 months with renal US just prior to visit. Other Provider present: No Post Operative care instructions: See discharge instructions Attending Doc Confirm Attending Attestation: Yes
[2024-09-06] MEDS: IOHEXOL 240 MG/ML - 10 ML VIAL 72 MG INJ (13:38)
[2024-09-13 21:08] LABS: Calcium Oxalate Dihydrate 40 % (.); Calcium Oxalate Monohydrate 40 % (.); Calcium phosphate (hydroxyl) 20 % (.); Size 6x4 mm (.)
== END 2024-09-06 14:50 | disposition home or self-care (01) ==
PROVIDERS: PCP Family Medicine; Visit Provider Urology
PROC: (CPT 918; principal; 2024-09-06 12:30)
DX: N13.2 Hydronephrosis with renal and ureteral calculous obstruction (principal); N32.89 Other specified disorders of bladder; E03.9 Hypothyroidism, unspecified; M06.9 Rheumatoid arthritis, unspecified
CPT/HCPCS: 52356; 36415; 74420; 82365; 84703; 85025; 85610; 85730; 99999; J0131; J0690; J1100; J2250; J2704; J2765; J3010; Q9966